=== PATIENT | male | born 1975 | race African-American/Black ===

== ENCOUNTER 2016-04-21 01:25 | Emergency (ER) | payer MEDICAID ==
[~2016-04-21] VITALS: Ht 170.2 cm; Wt 68.0 kg
[2016-04-21 01:52] VITALS: BP 146/111
[2016-04-21] MEDS ORDERED: ALBUTEROL (0.083%) 2.5MG/3ML NEB HHN STA (02:13)
== END 2016-04-21 04:07 | disposition home or self-care (01) ==
LOC: ER 01:56
DX: N18.9 Chronic kidney disease, unspecified (principal); R06.02 Shortness of breath; I12.9 Hypertensive chronic kidney disease with stage 1 through stage 4 chronic kidney disease, or unspecified chronic kidney disease; F17.210 Nicotine dependence, cigarettes, uncomplicated
CPT/HCPCS: 94640; 99283; J7611

== ENCOUNTER 2016-05-02 20:05 | Emergency (ER) | payer MEDICAID ==
[~2016-05-02] VITALS: Ht 172.7 cm; Wt 65.0 kg
[2016-05-02] MEDS ORDERED: ALBUTEROL (0.083%) 2.5MG/3ML NEB HHN STA (22:44)
[2016-05-02] MEDS ORDERED: PREDNISONE 20MG TABLET PO STA (22:44)
[2016-05-02] MEDS ORDERED: IPRATROPIUM BROMIDE (0.02%) 0.5MG/2.5ML NEB HHN STA (22:44)
[2016-05-03] MEDS ORDERED: MORPHINE SULFATE 4 MG/ML CPJ (NOT FOR IM USE) IV ONE (00:45)
[2016-05-03] MEDS ORDERED: ONDANSETRON HCL 4MG/2ML VIAL IV ONE (00:45)
[2016-05-03 01:15] LABS: CHLORIDE 99 mEq/L (98-107); INDEX HEMOLYSI 2 (1-3); INDEX ICTERIC 1 (1-4); INDEX LIPEMIC 1 (1-3)
[2016-05-03 01:17] LABS: BASOPHILS % 1.3 % (0.0-2.0); DIFFERENTIAL COMMENT 0; HEMATOCRIT. 22.8 % (42.0-52.0); HEMOGLOBIN. 7.4 g/dL (14.0-18.0); LYMPHOCYTES % 18.5 % (20.0-50.0); MEAN CORPUSCULAR HEMOGLOBIN 32.4 pg (28.0-32.0); MEAN CORPUSCULAR HGB CONC 32.3 g/dL (31.0-37.0); MEAN CORPUSCULAR VOLUME 100.4 fL (80.0-94.0); MEAN PLATELET VOLUME 9.7 fl (7.4-10.4); MONOCYTES % 6.8 % (2.0-8.0); NEUTROPHILS % 71.4 % (40.0-76.0); PLATELET 223 x1000/uL (130-400); RED BLOOD CELL COUNT 2.27 mill/uL (4.7-6.1); RED CELL DISTRIBUTION WIDTH 19.9 % (11.6-14.6); WHITE BLOOD COUNT 10.1 x1000/uL (4.5-11.0)
[2016-05-03 01:24] LABS: ALANINE AMINOTRANSFERASE 37 IU/L (13-61); ALBUMIN 3.3 g/dL (3.4-5.0); ANION GAP 22; CALCIUM 9.1 mg/dL (8.5-10.1); CARBON DIOXIDE 19 mEq/L (21-32); UREA NITROGEN BLOOD 68 mg/dL (7-21); eGFR 5 mL/min (>60)
[2016-05-03 04:20] VITALS: BP 171/64
== END 2016-05-03 04:33 | disposition home or self-care (01) ==
LOC: ER 20:05
DX: I12.0 Hypertensive chronic kidney disease with stage 5 chronic kidney disease or end stage renal disease (principal); R00.0 Tachycardia, unspecified; D63.1 Anemia in chronic kidney disease; J44.9 Chronic obstructive pulmonary disease, unspecified; N18.6 End stage renal disease; F17.210 Nicotine dependence, cigarettes, uncomplicated; Z99.2 Dependence on renal dialysis
CPT/HCPCS: 36415; 80053; 85025; 93005; 94644; 96374; 96375; 99285; J2270; J2405; J7611; Z7610; J7512

== ENCOUNTER 2016-05-11 04:43 | Emergency (ER) | payer MEDICAID ==
[~2016-05-11] VITALS: Ht 170.2 cm; Wt 59.0 kg
[2016-05-11] MEDS ORDERED: ALBUTEROL (0.083%) 2.5MG/3ML NEB HHN STA (07:18)
[2016-05-11 08:40] VITALS: BP 148/89
== END 2016-05-11 09:05 | disposition left against medical advice (07) ==
LOC: ER 04:43
DX: R06.02 Shortness of breath (principal); R05 Cough; R53.83 Other fatigue; R53.81 Other malaise; J44.9 Chronic obstructive pulmonary disease, unspecified; Z99.2 Dependence on renal dialysis
CPT/HCPCS: 71010; 93005; 94640; 99284; J7611; Z7610

== ENCOUNTER 2016-06-03 23:51 | Emergency (ER) | payer MEDICAID ==
[~2016-06-03] VITALS: Ht 170.2 cm; Wt 61.0 kg
[2016-06-04 04:05] VITALS: BP 175/122
== END 2016-06-04 06:06 | disposition home or self-care (01) ==
LOC: ER 23:52
DX: N28.9 Disorder of kidney and ureter, unspecified (principal); I12.9 Hypertensive chronic kidney disease with stage 1 through stage 4 chronic kidney disease, or unspecified chronic kidney disease; Z99.2 Dependence on renal dialysis
CPT/HCPCS: 99282

== ENCOUNTER 2016-07-25 01:11 | Inpatient (IN) | payer MEDICAID ==
[2016-07-25] VITALS (7 sets, daily range): BP systolic 140–170; BP diastolic 90–113
[~2016-07-25] VITALS: Ht 167.6 cm; Wt 64.9 kg
[2016-07-25] MEDS ORDERED: MORPHINE SULFATE 4 MG/ML CPJ (NOT FOR IM USE) IV STA (01:28)
[2016-07-25] MEDS ORDERED: ONDANSETRON HCL 4MG/2ML VIAL IV STA (01:28)
[2016-07-25] MEDS ORDERED: DIPHENHYDRAMINE 50MG/ML VIAL IV ONE (01:30)
[2016-07-25] MEDS ORDERED: IPRATROPIUM/ALBUTEROL 0.5-3(2.5)MG/3ML NEB HHN ONE (01:30)
[2016-07-25 01:53] LABS: BASOPHILS % 1.2 % (0.0-2.0); HEMOGLOBIN. 9.4 g/dL (14.0-18.0); LYMPHOCYTES % 16.4 % (20.0-50.0); MEAN CORPUSCULAR HEMOGLOBIN 31.3 pg (28.0-32.0); MEAN CORPUSCULAR VOLUME 96.7 fL (80.0-94.0); MEAN PLATELET VOLUME 8.2 fl (7.4-10.4); MONOCYTES % 6.9 % (2.0-8.0); NEUTROPHILS % 71.5 % (40.0-76.0); PLATELET 210 x1000/uL (130-400); RED CELL DISTRIBUTION WIDTH 16.3 % (11.6-14.6)
[2016-07-25 02:03] LABS: INR 1.1; PROTHROMBIN TIME 11.1 sec
[2016-07-25 02:11] LABS: CARBON DIOXIDE 27 mEq/L (21-32); CHLORIDE 100 mEq/L (98-107); CREATINE KINASE 208 IU/L (39-308)
[2016-07-25] MEDS ORDERED: CLONIDINE 0.2MG TABLET PO ONE (03:15)
[2016-07-25] MEDS ORDERED: FUROSEMIDE 40MG/4ML VIAL IV STA (03:39)
[2016-07-25] MEDS ORDERED: NITROGLYCERIN OINT 1GM/INCH UDPKT TD STA (03:39)
[2016-07-25] MEDS ORDERED: ONDANSETRON HCL 4MG/2ML VIAL IV ONE (05:15)
[2016-07-25] MEDS ORDERED: MORPHINE SULFATE 4 MG/ML CPJ (NOT FOR IM USE) IV ONE (05:15)
[2016-07-25] MEDS ORDERED: IPRATROPIUM/ALBUTEROL 0.5-3(2.5)MG/3ML NEB INH PRN (11:00)
[2016-07-25] MEDS ORDERED: ONDANSETRON HCL 4MG/2ML VIAL IV PRN (11:00)
[2016-07-25] MEDS ORDERED: DIPHENHYDRAMINE 50MG/ML VIAL IV PRN (11:00)
[2016-07-25] MEDS ORDERED: TRAMADOL 50MG TABLET PO PRN (11:00)
[2016-07-25] MEDS ORDERED: AMLODIPINE 5MG TABLET PO NR (11:30)
[2016-07-25] MEDS: CLONIDINE 0.1MG TABLET PO PRN ×2 (15:14→23:20)
[2016-07-25 15:56] LABS: TROPONIN I 0.09 ng/mL (0.00-0.04)
[2016-07-25] MEDS: MORPHINE SULFATE 2 MG/ML CPJ (NOT FOR IM USE) IV PRN (22:00)
[2016-07-26] VITALS (12 sets, daily range): BP systolic 153–190; BP diastolic 81–142
[2016-07-26] MEDS: MORPHINE SULFATE 2 MG/ML CPJ (NOT FOR IM USE) IV PRN ×5 (03:13→22:36)
[2016-07-26] MEDS: AMLODIPINE 5MG TABLET PO SCH ×2 (03:18→09:11)
[2016-07-26] MEDS ORDERED: AMLODIPINE 5MG TABLET PO SCH (09:00)
[2016-07-26 09:44] LABS: HEMATOCRIT. 27.5 % (42.0-52.0); HEMOGLOBIN. 8.9 g/dL (14.0-18.0); LYMPHOCYTES % 10.4 % (20.0-50.0); MEAN CORPUSCULAR HEMOGLOBIN 31.4 pg (28.0-32.0); MEAN CORPUSCULAR VOLUME 97.6 fL (80.0-94.0); MEAN PLATELET VOLUME 9.2 fl (7.4-10.4); NEUTROPHILS % 79.6 % (40.0-76.0); PLATELET 171 x1000/uL (130-400); RED BLOOD CELL COUNT 2.82 mill/uL (4.7-6.1); RED CELL DISTRIBUTION WIDTH 16.1 % (11.6-14.6)
[2016-07-26 10:29] LABS: CARBON DIOXIDE 23 mEq/L (21-32); CHLORIDE 100 mEq/L (98-107); HDL CHOLESTEROL 45 mg/dL (40-59); LDL CHOLESTEROL 102 mg/dL (5-100); TROPONIN I 0.11 ng/mL (0.00-0.04)
[2016-07-26] MEDS: CLONIDINE 0.1MG TABLET PO SCH ×3 (12:48→18:43)
[2016-07-26] MEDS: CARVEDILOL 3.125 MG TABLET PO SCH (22:27)
[2016-07-27] VITALS (7 sets, daily range): BP systolic 156–177; BP diastolic 107–126
[2016-07-27] MEDS: CLONIDINE 0.1MG TABLET PO PRN ×2 (00:36→11:59)
[2016-07-27] MEDS: CLONIDINE 0.1MG TABLET PO SCH (06:36)
[2016-07-27] MEDS: MORPHINE SULFATE 2 MG/ML CPJ (NOT FOR IM USE) IV PRN ×2 (06:44→11:57)
[2016-07-27] MEDS: CARVEDILOL 3.125 MG TABLET PO SCH (08:16)
[2016-07-27] MEDS: AMLODIPINE 5MG TABLET PO SCH (08:17)
[2016-07-27 08:42] LABS: BASOPHILS % 0.8 % (0.0-2.0); EOSINOPHILS % 5.2 % (0.0-5.0); HEMATOCRIT. 27.1 % (42.0-52.0); HEMOGLOBIN. 8.8 g/dL (14.0-18.0); LYMPHOCYTES % 16.1 % (20.0-50.0); MEAN CORPUSCULAR HEMOGLOBIN 31.3 pg (28.0-32.0); MEAN CORPUSCULAR VOLUME 96.1 fL (80.0-94.0); MEAN PLATELET VOLUME 8.9 fl (7.4-10.4); MONOCYTES % 8.1 % (2.0-8.0); NEUTROPHILS % 69.8 % (40.0-76.0); PLATELET 177 x1000/uL (130-400); RED BLOOD CELL COUNT 2.82 mill/uL (4.7-6.1); RED CELL DISTRIBUTION WIDTH 15.7 % (11.6-14.6)
[2016-07-27] MEDS ORDERED: LISINOPRIL 20MG TABLET PO SCH (12:45)
[2016-07-27] MEDS ORDERED: CARVEDILOL 12.5MG TABLET PO SCH (21:00)
== END 2016-07-27 13:03 | disposition left against medical advice (07) | DRG 194 ==
LOC: ER 01:15 → EDBEDREQ 03:43 → ENRESERV 05:25 → CANRESERV 05:25 → 5EST 05:37 → EDBEDREQSVC 05:39 → ENRESERV 07:01
PROVIDERS: ADMIT Internal Medicine; ATTEND Internal Medicine
PROC: 5A09357 Assistance with Respiratory Ventilation, Less than 24 Consecutive Hours, Continuous Positive Airway Pressure (ICD-10-PCS; principal; 2016-07-25)
PROC: 5A1D60Z (ICD-10-PCS; 2016-07-25)
DX: I13.2 Hypertensive heart and chronic kidney disease with heart failure and with stage 5 chronic kidney disease, or end stage renal disease (principal); J96.01 Acute respiratory failure with hypoxia; N17.9 Acute kidney failure, unspecified; E43 Unspecified severe protein-calorie malnutrition; N18.6 End stage renal disease; E87.5 Hyperkalemia; I27.2 Other secondary pulmonary hypertension; I50.23 Acute on chronic systolic (congestive) heart failure; I42.9 Cardiomyopathy, unspecified; D63.1 Anemia in chronic kidney disease; F17.210 Nicotine dependence, cigarettes, uncomplicated; F25.9 Schizoaffective disorder, unspecified; F31.9 Bipolar disorder, unspecified; I34.0 Nonrheumatic mitral (valve) insufficiency; Z91.19 Patient's noncompliance with other medical treatment and regimen; Z99.2 Dependence on renal dialysis; Z88.6 Allergy status to analgesic agent; Z79.899 Other long term (current) drug therapy; Z68.23 Body mass index [BMI] 23.0-23.9, adult
CPT/HCPCS: 36415; 71010; 80048; 80053; 80061; 82550; 83605; 83690; 83880; 84443; 84484; 85025; 85610; 85730; 87040; 93005; 94640; 94660; 96374; 96375; 96376; 99291; J1200; J1940; J2270; J2405; J7030; J7620

== ENCOUNTER 2016-09-30 04:10 | Emergency (ER) | payer MEDICAID ==
[~2016-09-30] VITALS: Ht 170.2 cm; Wt 59.0 kg
[~2016-09-30 04:10] MED LIST: CLON0.2T PO
[2016-09-30] MEDS ORDERED: MORPHINE SULFATE 4 MG/ML CPJ (NOT FOR IM USE) IV STA (05:04)
[2016-09-30] MEDS ORDERED: ONDANSETRON HCL 4MG/2ML VIAL IV STA (05:04)
[2016-09-30] MEDS ORDERED: LABETALOL 5MG/ML SYR 20 MG/4 ML SYRINGE IV ONE (05:15)
[2016-09-30 05:29] LABS: HEMATOCRIT. 30.9 % (42.0-52.0); HEMOGLOBIN. 10.1 g/dL (14.0-18.0); MEAN CORPUSCULAR HEMOGLOBIN 31.3 pg (28.0-32.0); MEAN CORPUSCULAR VOLUME 96.3 fL (80.0-94.0); MEAN PLATELET VOLUME 8.5 fl (7.4-10.4); PLATELET 217 x1000/uL (130-400); RED BLOOD CELL COUNT 3.21 mill/uL (4.7-6.1); RED CELL DISTRIBUTION WIDTH 17.5 % (11.6-14.6)
[2016-09-30 05:31] LABS: INR 1.1; PROTHROMBIN TIME 11.4 sec (9.4-11.6)
[2016-09-30 05:56] LABS: PLATELET ESTIMATE NORMAL
[2016-09-30 05:57] LABS: CARBON DIOXIDE 26 mEq/L (21-32); CHLORIDE 103 mEq/L (98-107); TROPONIN I 0.07 ng/mL (0.00-0.04)
[2016-09-30 06:42] VITALS: BP 169/117
== END 2016-09-30 06:50 | disposition home or self-care (01) ==
LOC: ER 04:10
DX: I82.4Y1 Acute embolism and thrombosis of unspecified deep veins of right proximal lower extremity (principal); I12.0 Hypertensive chronic kidney disease with stage 5 chronic kidney disease or end stage renal disease; N18.6 End stage renal disease; F17.200 Nicotine dependence, unspecified, uncomplicated; Z99.2 Dependence on renal dialysis; Z88.6 Allergy status to analgesic agent; Z88.8 Allergy status to other drugs, medicaments and biological substances
CPT/HCPCS: 36415; 71010; 80053; 84484; 85025; 85610; 93005; 96374; 96375; 99285; J2270; J2405; J3490; Z7610

== ENCOUNTER 2016-10-10 03:38 | Inpatient (IN) | payer MEDICAID ==
[~2016-10-10] VITALS: Ht 170.2 cm; Wt 83.9 kg
[2016-10-10] MEDS ORDERED: MORPHINE SULFATE 4 MG/ML CPJ (NOT FOR IM USE) IV STA (05:12)
[2016-10-10] MEDS ORDERED: ONDANSETRON HCL 4MG/2ML VIAL IV STA (05:12)
[2016-10-10] MEDS ORDERED: DIPHENHYDRAMINE 50MG/ML VIAL IV ONE (05:15)
[2016-10-10] MEDS: IPRATROPIUM/ALBUTEROL 0.5-3(2.5)MG/3ML NEB INH SCH ×3 (05:34→20:49)
[2016-10-10 06:04] LABS: BASOPHILS % 0.8 % (0.0-2.0); EOSINOPHILS % 9.1 % (0.0-5.0); HEMATOCRIT. 30.6 % (42.0-52.0); HEMOGLOBIN. 9.9 g/dL (14.0-18.0); LYMPHOCYTES % 12.1 % (20.0-50.0); MEAN CORPUSCULAR HEMOGLOBIN 31.2 pg (28.0-32.0); MEAN CORPUSCULAR VOLUME 96.2 fL (80.0-94.0); MEAN PLATELET VOLUME 9.2 fl (7.4-10.4); MONOCYTES % 5.7 % (2.0-8.0); NEUTROPHILS % 72.3 % (40.0-76.0); PLATELET 192 x1000/uL (130-400); RED BLOOD CELL COUNT 3.18 mill/uL (4.7-6.1); RED CELL DISTRIBUTION WIDTH 16.6 % (11.6-14.6)
[2016-10-10 06:27] LABS: CARBON DIOXIDE 26 mEq/L (21-32); CHLORIDE 102 mEq/L (98-107)
[2016-10-10 10:56] VITALS: BP 181/131
[2016-10-10 11:30] VITALS: BP 184/130
[2016-10-10] MEDS ORDERED: HYDROCODONE/ACETAMINOPHEN 5/325MG TABLET PO PRN (11:30)
[2016-10-10] MEDS ORDERED: GUAIFENESIN 200MG/10ML SUGAR FREE UDC PO PRN (11:30)
[2016-10-10] MEDS ORDERED: DEXTROSE 50% WATER 50ML SYRINGE IV PRN (11:30)
[2016-10-10] MEDS ORDERED: IPRATROPIUM/ALBUTEROL 0.5-3(2.5)MG/3ML NEB INH PRN (11:30)
[2016-10-10] MEDS ORDERED: MAGNESIUM/ALUMINUM HYDROXIDE/SIMETHICONE 30ML UDC PO PRN (11:30)
[2016-10-10] MEDS ORDERED: HYDROCODONE/ACETAMINOPHEN 10/325MG TABLET PO PRN (11:30)
[2016-10-10] MEDS ORDERED: CLONIDINE 0.1MG TABLET PO PRN (11:30)
[2016-10-10] MEDS ORDERED: LORAZEPAM 1MG TABLET PO PRN (11:30)
[2016-10-10 12:00] VITALS: BP 184/130
[2016-10-10] MEDS ORDERED: IBUPROFEN 600MG TABLET PO PRN (12:15)
[2016-10-10] MEDS: INSULIN LISPRO 100 UNITS/ML SUBCUT SCH ×3 (12:50→21:00)
[2016-10-10] MEDS: CALCIUM ACETATE 667MG CAPSULE PO SCH ×2 (12:52→17:52)
[2016-10-10] MEDS: AMLODIPINE 10MG TABLET PO SCH (12:52)
[2016-10-10] MEDS: LISINOPRIL 20MG TABLET PO SCH (12:52)
[2016-10-10] MEDS: BLOOD SUGAR DIAGNOSTIC STRIP TEST SCH ×3 (12:52→21:00)
[2016-10-10] MEDS: CEFTRIAXONE 1 G PREMIX 50 ML IV SCH (14:23)
[2016-10-10] MEDS: HYDRALAZINE HCL 25MG TABLET PO SCH ×2 (14:23→21:23)
[2016-10-10 16:00] VITALS: BP 169/108
[2016-10-10 17:52] LABS: TROPONIN I 0.09 ng/mL (0.00-0.04)
[2016-10-10 20:00] VITALS: BP 155/89
[2016-10-10] MEDS: MORPHINE SULFATE 2 MG/ML CPJ (NOT FOR IM USE) IV PRN (21:56)
[2016-10-11] VITALS: BP 159/100
[2016-10-11] MEDS: MORPHINE SULFATE 2 MG/ML CPJ (NOT FOR IM USE) IV PRN ×3 (02:03→14:18)
[2016-10-11 04:00] VITALS: BP 150/95
[2016-10-11] MEDS: IPRATROPIUM/ALBUTEROL 0.5-3(2.5)MG/3ML NEB INH SCH ×3 (04:10→23:30)
[2016-10-11] MEDS: BLOOD SUGAR DIAGNOSTIC STRIP TEST SCH ×4 (05:37→21:33)
[2016-10-11] MEDS: HYDRALAZINE HCL 25MG TABLET PO SCH ×3 (05:58→21:32)
[2016-10-11 07:18] VITALS: BP 158/110
[2016-10-11] MEDS: INSULIN LISPRO 100 UNITS/ML SUBCUT SCH ×4 (07:50→21:00)
[2016-10-11] MEDS: LISINOPRIL 20MG TABLET PO SCH (08:22)
[2016-10-11] MEDS: FOLIC ACID/VITAMIN B COMP W-C TABLET PO SCH (08:22)
[2016-10-11] MEDS: AMLODIPINE 10MG TABLET PO SCH (08:22)
[2016-10-11] MEDS: CALCIUM ACETATE 667MG CAPSULE PO SCH ×3 (08:23→18:42)
[2016-10-11 10:45] LABS: HEMATOCRIT. 29.5 % (42.0-52.0); HEMOGLOBIN. 9.6 g/dL (14.0-18.0); MEAN CORPUSCULAR HEMOGLOBIN 31.2 pg (28.0-32.0); MEAN CORPUSCULAR VOLUME 95.5 fL (80.0-94.0); MEAN PLATELET VOLUME 8.5 fl (7.4-10.4); PLATELET 183 x1000/uL (130-400); RED BLOOD CELL COUNT 3.09 mill/uL (4.7-6.1); RED CELL DISTRIBUTION WIDTH 16.8 % (11.6-14.6)
[2016-10-11 11:25] LABS: CARBON DIOXIDE 29 mEq/L (21-32); CHLORIDE 99 mEq/L (98-107); HDL CHOLESTEROL 52 mg/dL (40-59); LDL CHOLESTEROL 112 mg/dL (5-100)
[2016-10-11 12:07] VITALS: BP 155/104
[2016-10-11 14:04] LABS: PLATELET ESTIMATE NORMAL
[2016-10-11] MEDS ORDERED: KETOROLAC 30MG/ML VIAL IV PRN (14:15)
[2016-10-11] MEDS: CEFTRIAXONE 1 G PREMIX 50 ML IV SCH (14:16)
[2016-10-11] MEDS: SEVELAMER CARBONATE 800 MG TABLET PO SCH ×2 (14:19→18:42)
[2016-10-11 15:10] VITALS: BP 159/104
[2016-10-11] MEDS: MORPHINE SULFATE 4 MG/ML CPJ (NOT FOR IM USE) IV PRN ×2 (18:42→23:02)
[2016-10-11 20:00] VITALS: BP 161/110
[2016-10-12] VITALS: BP 154/100
[2016-10-12] MEDS: MORPHINE SULFATE 4 MG/ML CPJ (NOT FOR IM USE) IV PRN ×2 (03:21→08:19)
[2016-10-12 04:00] VITALS: BP 158/113
[2016-10-12] MEDS: IPRATROPIUM/ALBUTEROL 0.5-3(2.5)MG/3ML NEB INH SCH (04:00)
[2016-10-12] MEDS: HYDRALAZINE HCL 25MG TABLET PO SCH (05:00)
[2016-10-12] MEDS: BLOOD SUGAR DIAGNOSTIC STRIP TEST SCH ×2 (06:33→11:49)
[2016-10-12] MEDS: INSULIN LISPRO 100 UNITS/ML SUBCUT SCH ×2 (07:50→12:36)
[2016-10-12 07:56] VITALS: BP 147/92
[2016-10-12] MEDS: SEVELAMER CARBONATE 800 MG TABLET PO SCH (08:18)
[2016-10-12] MEDS: FOLIC ACID/VITAMIN B COMP W-C TABLET PO SCH (08:18)
[2016-10-12] MEDS: AMLODIPINE 10MG TABLET PO SCH (08:24)
[2016-10-12] MEDS: LISINOPRIL 20MG TABLET PO SCH (08:24)
[2016-10-12] MEDS: CALCIUM ACETATE 667MG CAPSULE PO SCH (08:37)
[2016-10-12 12:00] VITALS: BP 158/105
[2016-10-12 12:10] LABS: BASOPHILS % 1.1 % (0.0-2.0); EOSINOPHILS % 12.2 % (0.0-5.0); HEMATOCRIT. 28.3 % (42.0-52.0); HEMOGLOBIN. 9.1 g/dL (14.0-18.0); LYMPHOCYTES % 17.5 % (20.0-50.0); MEAN CORPUSCULAR HEMOGLOBIN 30.8 pg (28.0-32.0); MEAN CORPUSCULAR VOLUME 95.7 fL (80.0-94.0); MEAN PLATELET VOLUME 8.9 fl (7.4-10.4); MONOCYTES % 5.9 % (2.0-8.0); NEUTROPHILS % 63.3 % (40.0-76.0); PLATELET 203 x1000/uL (130-400); RED BLOOD CELL COUNT 2.96 mill/uL (4.7-6.1); RED CELL DISTRIBUTION WIDTH 16.9 % (11.6-14.6)
[2016-10-12 12:19] LABS: PROTHROMBIN TIME 10.6 sec (9.4-11.6)
[2016-10-12 12:30] LABS: PHOSPHORUS 6.7 mg/dL (2.5-4.9)
[2016-11-23] MEDS ORDERED: NEPVIT PO (08:48)
[2016-11-23] MEDS ORDERED: AMLO10TA80 PO (08:48)
[2016-11-23] MEDS ORDERED: HYDR-4135 PO (08:48)
[2016-11-30] MEDS ORDERED: GUAI600T44 PO (11:59)
[2016-11-30] MEDS ORDERED: AZIT500T5 PO (11:59)
[2016-11-30] MEDS ORDERED: LOSA50TA3 PO (11:59)
[2016-11-30] MEDS ORDERED: COR12 PO (11:59)
[2016-12-26] MEDS ORDERED: CLON1PAT38 TD (10:30)
[2016-12-26] MEDS ORDERED: LOSA50TA3 PO (10:30)
== END 2016-10-12 13:50 | disposition left against medical advice (07) | DRG 133 ==
LOC: ER 03:38 → 6WST 05:54 → EDBEDREQTM 05:59 → EDBEDREQ 05:59 → ENRESERV 09:07
PROVIDERS: ADMIT Internal Medicine; ATTEND Internal Medicine
DX: J96.00 Acute respiratory failure, unspecified whether with hypoxia or hypercapnia (principal); I13.2 Hypertensive heart and chronic kidney disease with heart failure and with stage 5 chronic kidney disease, or end stage renal disease; N18.6 End stage renal disease; I42.9 Cardiomyopathy, unspecified; I82.401 Acute embolism and thrombosis of unspecified deep veins of right lower extremity; I27.2 Other secondary pulmonary hypertension; E44.1 Mild protein-calorie malnutrition; E83.39 Other disorders of phosphorus metabolism; D63.1 Anemia in chronic kidney disease; F17.210 Nicotine dependence, cigarettes, uncomplicated; Z60.2 Problems related to living alone; F20.9 Schizophrenia, unspecified; Z53.21 Procedure and treatment not carried out due to patient leaving prior to being seen by health care provider; I50.42 Chronic combined systolic (congestive) and diastolic (congestive) heart failure; F19.10 Other psychoactive substance abuse, uncomplicated; Z86.718 Personal history of other venous thrombosis and embolism; Z99.2 Dependence on renal dialysis; Z91.19 Patient's noncompliance with other medical treatment and regimen; Z88.8 Allergy status to other drugs, medicaments and biological substances
CPT/HCPCS: 36415; 71010; 80048; 80053; 80061; 82550; 82962; 84100; 84484; 85025; 85610; 85730; 87040; 93005; 96374; 96375; 99291; J0696; J1200; J2270; J2405; J7030; J7050; J7620

== ENCOUNTER 2016-10-22 03:58 | Inpatient (IN) | payer MEDICAID ==
[~2016-10-22] VITALS: Ht 170.2 cm; Wt 59.9 kg
[2016-10-22] MEDS ORDERED: ASPIRIN 81MG TABLET PO ONE (04:30)
[2016-10-22] MEDS ORDERED: NITROGLYCERIN OINT 1GM/INCH UDPKT TD ONE (04:30)
[2016-10-22] MEDS ORDERED: LABETALOL HCL 20MG/4ML CARPUJECT IV ONE (04:30)
[2016-10-22] MEDS ORDERED: IPRATROPIUM BROMIDE (0.02%) 0.5MG/2.5ML NEB HHN STA (04:55)
[2016-10-22] MEDS ORDERED: METHYLPREDNISOLONE SOD SUCC 125 MG/2 ML VIAL IV STA (04:55)
[2016-10-22] MEDS ORDERED: ALBUTEROL (0.083%) 2.5MG/3ML NEB HHN STA (04:55)
[2016-10-22] MEDS ORDERED: MAGNESIUM 2 G PREMIX 50 ML IV ONE (05:00)
[2016-10-22] MEDS ORDERED: LEVOFLOXACIN 750MG PREMIX 150 ML IV ONE (05:00)
[2016-10-22 05:08] LABS: BG CARBOXYHEMOGLOBIN 0.8 % (0.5-1.5); BG DEOXYHEMOGLOBIN 8.5 % (0.0-5.0); BG FRACTION INSPIRED OXYGEN 28; BG HCO3 ACT 22.4 mmol/L (22.0-26.0); BG METHEMOGLOBIN 0.2 % (0.0-1.5); BG OXYGEN SATURATION 91.4 % (92.0-98.5); BG OXYHEMOGLOBIN 90.5 % (94.0-97.0); BG PCO2 32.6 mmHg (35.0-45.0); BG PH 7.455 (7.350-7.450); BG PO2 64.6 mmHg (75.0-100.0); BG SAMPLE SITE LEFT RADIAL; BG TOTAL HEMOGLOBIN 10.7 g/dL (12.0-18.0); BG VENT MODE NASAL CANNULA
[2016-10-22 06:26] LABS: BASOPHILS % 0.7 % (0.0-2.0); EOSINOPHILS % 4.4 % (0.0-5.0); HEMATOCRIT. 32.3 % (42.0-52.0); HEMOGLOBIN. 10.2 g/dL (14.0-18.0); LYMPHOCYTES % 9.7 % (20.0-50.0); MEAN CORPUSCULAR HEMOGLOBIN 31.1 pg (28.0-32.0); MEAN PLATELET VOLUME 8.7 fl (7.4-10.4); MONOCYTES % 3.8 % (2.0-8.0); NEUTROPHILS % 81.4 % (40.0-76.0); PLATELET 240 x1000/uL (130-400); RED CELL DISTRIBUTION WIDTH 15.9 % (11.6-14.6)
[2016-10-22] MEDS ORDERED: MORPHINE SULFATE 2 MG/ML CPJ (NOT FOR IM USE) IV STA (06:29)
[2016-10-22 06:36] LABS: INR 1.1; PARTIAL THROMBOPLASTIN TIME 26.8 sec (23.4-31.0)
[2016-10-22 06:41] LABS: CARBON DIOXIDE 26 mEq/L (21-32); CHLORIDE 101 mEq/L (98-107); ETHANOL BLOOD < 10 mg/dL; TROPONIN I 0.22 ng/mL (0.00-0.04)
[2016-10-22 09:45] VITALS: BP 173/110
[2016-10-22] MEDS ORDERED: ONDANSETRON HCL 4MG/2ML VIAL IV PRN ×2 (10:00→10:15)
[2016-10-22] MEDS ORDERED: IPRATROPIUM/ALBUTEROL 0.5-3(2.5)MG/3ML NEB INH PRN ×2 (10:00→10:15)
[2016-10-22] MEDS ORDERED: CLONIDINE 0.1MG TABLET PO PRN (10:00)
[2016-10-22] MEDS ORDERED: DOCUSATE SODIUM 100MG CAPSULE PO PRN ×2 (10:00→10:15)
[2016-10-22] MEDS ORDERED: MAGNESIUM/ALUMINUM HYDROXIDE/SIMETHICONE 30ML UDC PO PRN ×2 (10:00→10:15)
[2016-10-22] MEDS ORDERED: TRAMADOL 50MG TABLET PO PRN ×2 (10:00→10:15)
[2016-10-22] MEDS ORDERED: AZITHROMYCIN 500 MG TABLET PO SCH ×2 (10:00→10:15)
[2016-10-22 10:38] VITALS: BP 173/110
[2016-10-22] MEDS: FOLIC ACID/VITAMIN B COMP W-C TABLET PO SCH (11:53)
[2016-10-22] MEDS: CEFTRIAXONE 1 G PREMIX 50 ML IV SCH (11:54)
[2016-10-22 12:00] VITALS: BP 179/117
[2016-10-22 16:00] VITALS: BP 165/112
[2016-10-22] MEDS: AZITHROMYCIN 500 MG in DEXT 5% WATER 250 ML IV SCH (17:39)
[2016-10-22 20:00] VITALS: BP 164/99
[2016-10-22] MEDS: MORPHINE SULFATE 4 MG/ML CPJ (NOT FOR IM USE) IV PRN (21:48)
[2016-10-22] MEDS: AMLODIPINE 5MG TABLET PO SCH (22:45)
[2016-10-23] VITALS: BP 171/100
[2016-10-23] MEDS: CLONIDINE 0.1MG TABLET PO PRN ×2 (00:52→10:26)
[2016-10-23] MEDS: MORPHINE SULFATE 4 MG/ML CPJ (NOT FOR IM USE) IV PRN ×4 (01:39→19:00)
[2016-10-23 04:00] VITALS: BP 148/99
[2016-10-23 08:00] VITALS: BP 142/83
[2016-10-23] MEDS: FOLIC ACID/VITAMIN B COMP W-C TABLET PO SCH (08:00)
[2016-10-23] MEDS: AMLODIPINE 5MG TABLET PO SCH (08:00)
[2016-10-23] MEDS: CEFTRIAXONE 1 G PREMIX 50 ML IV SCH (08:04)
[2016-10-23] MEDS ORDERED: CEFTRIAXONE 1 G PREMIX 50 ML IV SCH (09:00)
[2016-10-23 09:27] LABS: BASOPHILS % 0.7 % (0.0-2.0); HEMATOCRIT 26.5 % (42.0-52.0); HEMATOCRIT. 26.5 % (42.0-52.0); HEMOGLOBIN 8.7 g/dL (14.0-18.0); HEMOGLOBIN. 8.7 g/dL (14.0-18.0); LYMPHOCYTES % 14.5 % (20.0-50.0); MEAN CORPUSCULAR HEMOGLOBIN 31.1 pg (28.0-32.0); MEAN CORPUSCULAR VOLUME 94.9 fL (80.0-94.0); MEAN PLATELET VOLUME 8.5 fl (7.4-10.4); MONOCYTES % 5.1 % (2.0-8.0); NEUTROPHILS % 77.7 % (40.0-76.0); PLATELET 216 x1000/uL (130-400); RED BLOOD CELL COUNT 2.79 mill/uL (4.7-6.1); RED CELL DISTRIBUTION WIDTH 15.9 % (11.6-14.6)
[2016-10-23 09:38] LABS: PHOSPHORUS 5.5 mg/dL (2.5-4.9)
[2016-10-23] MEDS ORDERED: LISINOPRIL 20MG TABLET PO SCH ×2 (11:00→21:00)
[2016-10-23 12:00] VITALS: BP 152/107
[2016-10-23] MEDS: SEVELAMER CARBONATE 800 MG TABLET PO SCH ×2 (12:13→18:21)
[2016-10-23] MEDS: AZITHROMYCIN 500 MG in DEXT 5% WATER 250 ML IV SCH (18:00)
[2016-10-23 19:00] VITALS: BP 141/96
[2016-10-24] MEDS ORDERED: AZITHROMYCIN 500 MG TABLET PO SCH (09:00)
[2016-11-23] MEDS ORDERED: AMLO10TA80 PO (08:48)
[2016-11-23] MEDS ORDERED: NEPVIT PO (08:48)
[2016-11-23] MEDS ORDERED: HYDR-4135 PO (08:48)
[2016-12-26] MEDS ORDERED: LOSA50TA3 PO (10:30)
[2016-12-26] MEDS ORDERED: CLON1PAT38 TD (10:30)
== END 2016-10-23 20:18 | disposition left against medical advice (07) | DRG 140 ==
LOC: ER 03:58 → 5EST 04:53 → ENRESERV 08:40 → ER 10:03
PROVIDERS: ADMIT Internal Medicine; ATTEND Internal Medicine
PROC: 5A1D00Z (ICD-10-PCS; principal; 2016-10-22)
DX: J44.0 Chronic obstructive pulmonary disease with (acute) lower respiratory infection (principal); J96.00 Acute respiratory failure, unspecified whether with hypoxia or hypercapnia; I13.2 Hypertensive heart and chronic kidney disease with heart failure and with stage 5 chronic kidney disease, or end stage renal disease; J18.9 Pneumonia, unspecified organism; N18.6 End stage renal disease; I50.9 Heart failure, unspecified; J44.1 Chronic obstructive pulmonary disease with (acute) exacerbation; D63.1 Anemia in chronic kidney disease; E78.5 Hyperlipidemia, unspecified; Z53.21 Procedure and treatment not carried out due to patient leaving prior to being seen by health care provider; F17.200 Nicotine dependence, unspecified, uncomplicated; Z91.15 Patient's noncompliance with renal dialysis; Z91.19 Patient's noncompliance with other medical treatment and regimen; Z99.2 Dependence on renal dialysis; Z88.8 Allergy status to other drugs, medicaments and biological substances
CPT/HCPCS: 36415; 36600; 71010; 80048; 80053; 82375; 82805; 83605; 83690; 83735; 83880; 84100; 84484; 85025; 85027; 85610; 85730; 87040; 93005; 96365; 96366; 96368; 96375; 99285; G0482; J0456; J0696; J1956; J2270; J2405; J2930; J3475; J3490; J7030; J7050; J7060

== ENCOUNTER 2016-10-30 04:58 | Inpatient (IN) | payer MEDICAID ==
[~2016-10-30] VITALS: Ht 167.6 cm; Wt 62.6 kg
[2016-10-30 05:38] LABS: EOSINOPHILS % 6.2 % (0.0-5.0); HEMATOCRIT. 26.7 % (42.0-52.0); HEMOGLOBIN. 8.8 g/dL (14.0-18.0); LYMPHOCYTES % 14.2 % (20.0-50.0); MEAN CORPUSCULAR HEMOGLOBIN 31.2 pg (28.0-32.0); MEAN CORPUSCULAR VOLUME 95.2 fL (80.0-94.0); MEAN PLATELET VOLUME 8.5 fl (7.4-10.4); MONOCYTES % 6.2 % (2.0-8.0); NEUTROPHILS % 72.4 % (40.0-76.0); PLATELET 191 x1000/uL (130-400); RED BLOOD CELL COUNT 2.81 mill/uL (4.7-6.1); RED CELL DISTRIBUTION WIDTH 16.8 % (11.6-14.6)
[2016-10-30 05:46] LABS: INR 1.1; PROTHROMBIN TIME 11.4 sec (9.4-11.6)
[2016-10-30 05:55] LABS: CARBON DIOXIDE 28 mEq/L (21-32); CHLORIDE 104 mEq/L (98-107); TROPONIN I 0.12 ng/mL (0.00-0.04)
[2016-10-30] MEDS ORDERED: IBUPROFEN 600MG TABLET PO PRN (06:15)
[2016-10-30] MEDS ORDERED: ACETAMINOPHEN 325MG TABLET PO ONE (07:15)
[2016-10-30] MEDS ORDERED: NITROGLYCERIN OINT 1GM/INCH UDPKT TD ONE (08:00)
[2016-10-30] MEDS ORDERED: IPRATROPIUM/ALBUTEROL 0.5-3(2.5)MG/3ML NEB HHN ONE (08:00)
[2016-10-30] MEDS ORDERED: ACETAMINOPHEN 325MG TABLET PO PRN (08:45)
[2016-10-30] MEDS ORDERED: DOCUSATE SODIUM 100MG CAPSULE PO PRN (08:45)
[2016-10-30] MEDS ORDERED: DIPHENHYDRAMINE 50MG/ML VIAL IV PRN (08:45)
[2016-10-30] MEDS ORDERED: GUAIFENESIN 200MG/10ML SUGAR FREE UDC PO PRN (08:45)
[2016-10-30] MEDS ORDERED: HYDROCODONE/ACETAMINOPHEN 5/325MG TABLET PO PRN (08:45)
[2016-10-30] MEDS ORDERED: IPRATROPIUM/ALBUTEROL 0.5-3(2.5)MG/3ML NEB HHN NR (08:45)
[2016-10-30] MEDS ORDERED: MAGNESIUM/ALUMINUM HYDROXIDE/SIMETHICONE 30ML UDC PO PRN (08:45)
[2016-10-30] MEDS ORDERED: IPRATROPIUM/ALBUTEROL 0.5-3(2.5)MG/3ML NEB INH PRN (08:45)
[2016-10-30] MEDS ORDERED: ONDANSETRON HCL 4MG/2ML VIAL IV PRN (08:45)
[2016-10-30 09:22] VITALS: BP 172/112
[2016-10-30 09:31] VITALS: BP 172/112
[2016-10-30] MEDS: MORPHINE SULFATE 4 MG/ML CPJ (NOT FOR IM USE) IV PRN ×3 (09:51→22:21)
[2016-10-30] MEDS: CLONIDINE 0.1MG TABLET PO PRN (09:51)
[2016-10-30] MEDS: ENOXAPARIN 30MG/0.3ML SYR SUBCUT SCH (09:52)
[2016-10-30 11:53] VITALS: BP 165/116
[2016-10-30 12:30] VITALS: BP 166/116
[2016-10-30] MEDS: HYDRALAZINE HCL 25MG TABLET PO SCH ×2 (14:30→22:31)
[2016-10-30 16:30] VITALS: BP 168/116
[2016-10-30 17:54] LABS: CREATINE KINASE MB FRACTION 2.2 ng/mL (0.5-3.6); TROPONIN I 0.1 ng/mL (0.00-0.04)
[2016-10-30 20:00] VITALS: BP 166/86
[2016-10-30 23:29] LABS: CREATINE KINASE MB FRACTION 2.4 ng/mL (0.5-3.6); TROPONIN I 0.11 ng/mL (0.00-0.04)
[2016-10-31] VITALS (7 sets, daily range): BP systolic 153–185; BP diastolic 104–134
[2016-10-31] MEDS: MORPHINE SULFATE 4 MG/ML CPJ (NOT FOR IM USE) IV PRN ×4 (02:24→21:19)
[2016-10-31] MEDS: CLONIDINE 0.1MG TABLET PO PRN ×2 (02:26→08:47)
[2016-10-31] MEDS: HYDRALAZINE HCL 25MG TABLET PO SCH ×2 (06:06→14:13)
[2016-10-31] MEDS: ENOXAPARIN 30MG/0.3ML SYR SUBCUT SCH (08:44)
[2016-10-31 16:14] LABS: BASOPHILS % 0.9 % (0.0-2.0); EOSINOPHILS % 7.7 % (0.0-5.0); HEMATOCRIT. 25.7 % (42.0-52.0); HEMOGLOBIN. 8.2 g/dL (14.0-18.0); MEAN CORPUSCULAR HEMOGLOBIN 31.4 pg (28.0-32.0); MEAN CORPUSCULAR VOLUME 98.3 fL (80.0-94.0); MEAN PLATELET VOLUME 9.2 fl (7.4-10.4); MONOCYTES % 5.9 % (2.0-8.0); NEUTROPHILS % 68.5 % (40.0-76.0); PLATELET 191 x1000/uL (130-400); RED BLOOD CELL COUNT 2.62 mill/uL (4.7-6.1); RED CELL DISTRIBUTION WIDTH 17.3 % (11.6-14.6)
[2016-10-31 16:27] LABS: CARBON DIOXIDE 24 mEq/L (21-32); CHLORIDE 105 mEq/L (98-107); T4 FREE 1.02 ng/dL (0.76-1.46)
[2016-10-31] MEDS ORDERED: LISINOPRIL 40MG TABLET PO SCH (16:45)
[2016-10-31] MEDS ORDERED: FOLIC ACID/VITAMIN B COMP W-C TABLET PO SCH (16:45)
[2016-10-31] MEDS ORDERED: SEVELAMER CARBONATE 800 MG TABLET PO SCH (17:50)
[2016-10-31] MEDS ORDERED: IPRATROPIUM/ALBUTEROL 0.5-3(2.5)MG/3ML NEB HHN SCH (18:00)
[2016-10-31] MEDS ORDERED: BUDESONIDE 0.5MG/2ML NEB HHN SCH (18:00)
[2016-10-31] MEDS ORDERED: HYDRALAZINE HCL 25MG TABLET PO SCH (22:00)
[2016-11-23] MEDS ORDERED: HYDR-4135 PO (08:48)
[2016-11-23] MEDS ORDERED: NEPVIT PO (08:48)
[2016-11-23] MEDS ORDERED: AMLO10TA80 PO (08:48)
[2016-12-26] MEDS ORDERED: CLON1PAT38 TD (10:30)
[2016-12-26] MEDS ORDERED: LOSA50TA3 PO (10:30)
== END 2016-10-31 21:49 | disposition left against medical advice (07) | DRG 133 ==
LOC: ER 07:10 → 6WST 07:11 → ENRESERV 07:16
PROVIDERS: ADMIT Internal Medicine; ATTEND Internal Medicine
DX: J96.00 Acute respiratory failure, unspecified whether with hypoxia or hypercapnia (principal); I50.43 Acute on chronic combined systolic (congestive) and diastolic (congestive) heart failure; E11.22 Type 2 diabetes mellitus with diabetic chronic kidney disease; I42.9 Cardiomyopathy, unspecified; I13.2 Hypertensive heart and chronic kidney disease with heart failure and with stage 5 chronic kidney disease, or end stage renal disease; I27.2 Other secondary pulmonary hypertension; D64.9 Anemia, unspecified; F17.210 Nicotine dependence, cigarettes, uncomplicated; F20.9 Schizophrenia, unspecified; J45.909 Unspecified asthma, uncomplicated; G89.29 Other chronic pain; E78.5 Hyperlipidemia, unspecified; Z87.01 Personal history of pneumonia (recurrent); I82.501 Chronic embolism and thrombosis of unspecified deep veins of right lower extremity; J44.1 Chronic obstructive pulmonary disease with (acute) exacerbation; Z88.8 Allergy status to other drugs, medicaments and biological substances; Z79.899 Other long term (current) drug therapy; Z91.19 Patient's noncompliance with other medical treatment and regimen; Z99.2 Dependence on renal dialysis
CPT/HCPCS: 36415; 71010; 80053; 82550; 82553; 82962; 83880; 84439; 84443; 84484; 85025; 85610; 93005; 93970; 94640; 94664; 99285; J1650; J2270; J2405; J7030; J7620

== ENCOUNTER 2016-11-09 00:30 | Inpatient (IN) | payer MEDICAID ==
[~2016-11-09] VITALS: Ht 170.2 cm; Wt 68.0 kg
[2016-11-09 01:13] LABS: BASOPHILS % 1.3 % (0.0-2.0); EOSINOPHILS % 6.3 % (0.0-5.0); HEMATOCRIT. 26.7 % (42.0-52.0); HEMOGLOBIN. 8.7 g/dL (14.0-18.0); LYMPHOCYTES % 15.7 % (20.0-50.0); MEAN CORPUSCULAR HEMOGLOBIN 31.8 pg (28.0-32.0); MEAN CORPUSCULAR VOLUME 97.7 fL (80.0-94.0); MEAN PLATELET VOLUME 8.3 fl (7.4-10.4); MONOCYTES % 5.2 % (2.0-8.0); NEUTROPHILS % 71.5 % (40.0-76.0); PLATELET 241 x1000/uL (130-400); RED BLOOD CELL COUNT 2.73 mill/uL (4.7-6.1); RED CELL DISTRIBUTION WIDTH 19.6 % (11.6-14.6)
[2016-11-09 01:22] LABS: INR 1.1; PROTHROMBIN TIME 11.5 sec (9.4-11.6)
[2016-11-09 01:29] LABS: CARBON DIOXIDE 24 mEq/L (21-32); CHLORIDE 102 mEq/L (98-107); TROPONIN I 0.18 ng/mL (0.00-0.04)
[2016-11-09] MEDS ORDERED: HYDRALAZINE 20MG/ML VIAL IV ONE (02:45)
[2016-11-09 03:45] VITALS: BP 169/103
[2016-11-09] MEDS: CLONIDINE 0.1MG TABLET PO PRN (04:28)
[2016-11-09] MEDS: MORPHINE SULFATE 4 MG/ML CPJ (NOT FOR IM USE) IV PRN ×4 (04:29→20:24)
[2016-11-09 06:43] LABS: BASOPHILS % 0.9 % (0.0-2.0); EOSINOPHILS % 6.1 % (0.0-5.0); HEMATOCRIT. 27.1 % (42.0-52.0); HEMOGLOBIN. 8.7 g/dL (14.0-18.0); LYMPHOCYTES % 14.5 % (20.0-50.0); MEAN CORPUSCULAR HEMOGLOBIN 31.6 pg (28.0-32.0); MEAN PLATELET VOLUME 8.4 fl (7.4-10.4); MONOCYTES % 4.9 % (2.0-8.0); NEUTROPHILS % 73.6 % (40.0-76.0); PLATELET 256 x1000/uL (130-400); RED BLOOD CELL COUNT 2.77 mill/uL (4.7-6.1); RED CELL DISTRIBUTION WIDTH 19.9 % (11.6-14.6)
[2016-11-09 08:00] VITALS: BP 162/117
[2016-11-09 12:00] VITALS: BP 141/98
[2016-11-09 16:00] VITALS: BP 164/123
[2016-11-09] MEDS: APIXABAN 2.5 MG TABLET PO SCH (16:29)
[2016-11-09] MEDS: CALCIUM CARBONATE 1250MG TABLET (500MG ELEMENTAL CALCIUM) PO SCH (16:41)
[2016-11-09] MEDS: SEVELAMER CARBONATE 800 MG TABLET PO SCH (16:41)
[2016-11-09] MEDS ORDERED: RIVAROXABAN 15 MG TABLET PO SCH (17:00)
[2016-11-09 20:27] VITALS: BP 172/96
[2016-11-10] VITALS: BP 170/120
[2016-11-10] MEDS: MORPHINE SULFATE 4 MG/ML CPJ (NOT FOR IM USE) IV PRN ×5 (00:25→21:33)
[2016-11-10] MEDS: CLONIDINE 0.1MG TABLET PO PRN ×4 (00:26→12:45)
[2016-11-10 04:00] VITALS: BP 165/122
[2016-11-10 07:19] LABS: EOSINOPHILS % 8.4 % (0.0-5.0); HEMATOCRIT. 26.1 % (42.0-52.0); HEMOGLOBIN. 8.4 g/dL (14.0-18.0); LYMPHOCYTES % 17.2 % (20.0-50.0); MEAN CORPUSCULAR HEMOGLOBIN 32.1 pg (28.0-32.0); MEAN CORPUSCULAR VOLUME 99.2 fL (80.0-94.0); MEAN PLATELET VOLUME 8.9 fl (7.4-10.4); NEUTROPHILS % 69.4 % (40.0-76.0); PLATELET 203 x1000/uL (130-400); RED BLOOD CELL COUNT 2.63 mill/uL (4.7-6.1); RED CELL DISTRIBUTION WIDTH 19.5 % (11.6-14.6)
[2016-11-10 07:59] LABS: PHOSPHORUS 6.9 mg/dL (2.5-4.9)
[2016-11-10 08:00] VITALS: BP 175/122
[2016-11-10] MEDS: SEVELAMER CARBONATE 800 MG TABLET PO SCH ×3 (08:40→16:45)
[2016-11-10] MEDS: CALCIUM CARBONATE 1250MG TABLET (500MG ELEMENTAL CALCIUM) PO SCH ×2 (08:40→16:45)
[2016-11-10] MEDS: APIXABAN 2.5 MG TABLET PO SCH ×2 (08:42→16:45)
[2016-11-10] MEDS: AMLODIPINE 5MG TABLET PO SCH ×2 (08:44→21:34)
[2016-11-10] MEDS ORDERED: FOLIC ACID/VITAMIN B COMP W-C TABLET PO SCH (09:00)
[2016-11-10 12:00] VITALS: BP 171/124
[2016-11-10] MEDS ORDERED: ATENOLOL 50 MG TABLET PO NR (15:00)
[2016-11-10 16:27] VITALS: BP 158/118
[2016-11-10] MEDS ORDERED: ONDANSETRON HCL 4MG/2ML VIAL IV PRN (16:30)
[2016-11-10] MEDS ORDERED: HEPARIN SODIUM 1,000 UNIT/1ML VIAL IV NR (18:45)
[2016-11-10 21:33] VITALS: BP 142/79
[2016-11-10] MEDS ORDERED: NITROGLYCERIN 0.4MG TABLET SL SL PRN (22:30)
[2016-11-11] MEDS ORDERED: ATENOLOL 50 MG TABLET PO SCH (09:00)
[2016-11-23] MEDS ORDERED: HYDR-4135 PO (08:48)
[2016-11-23] MEDS ORDERED: AMLO10TA80 PO (08:48)
[2016-11-23] MEDS ORDERED: NEPVIT PO (08:48)
[2016-11-30] MEDS ORDERED: AZIT500T5 PO (11:59)
[2016-11-30] MEDS ORDERED: COR12 PO (11:59)
[2016-11-30] MEDS ORDERED: GUAI600T44 PO (11:59)
[2016-11-30] MEDS ORDERED: LOSA50TA3 PO (11:59)
[2016-12-26] MEDS ORDERED: CLON1PAT38 TD (10:30)
[2016-12-26] MEDS ORDERED: LOSA50TA3 PO (10:30)
== END 2016-11-10 22:45 | disposition left against medical advice (07) | DRG 199 ==
LOC: ER 00:30 → 8WST 02:14 → ENRESERV 02:42
PROVIDERS: ADMIT Internal Medicine; ATTEND Internal Medicine
PROC: 5A1D00Z (ICD-10-PCS; principal; 2016-11-10)
DX: I16.9 Hypertensive crisis, unspecified (principal); N18.6 End stage renal disease; I42.0 Dilated cardiomyopathy; E87.70 Fluid overload, unspecified; I50.22 Chronic systolic (congestive) heart failure; I13.2 Hypertensive heart and chronic kidney disease with heart failure and with stage 5 chronic kidney disease, or end stage renal disease; F20.9 Schizophrenia, unspecified; F17.200 Nicotine dependence, unspecified, uncomplicated; D63.8 Anemia in other chronic diseases classified elsewhere; Z99.2 Dependence on renal dialysis; F99 Mental disorder, not otherwise specified; Z91.19 Patient's noncompliance with other medical treatment and regimen; Z88.6 Allergy status to analgesic agent; Z86.718 Personal history of other venous thrombosis and embolism; Z88.8 Allergy status to other drugs, medicaments and biological substances
CPT/HCPCS: 36415; 71010; 80048; 80053; 83735; 83880; 84100; 84484; 85025; 85610; 93005; 96374; 99291; J0360; J1644; J2270; J2405; J7030

== ENCOUNTER 2016-11-21 07:28 | Inpatient (IN) | payer MEDICAID ==
[~2016-11-21] VITALS: Ht 170.2 cm; Wt 61.2 kg
[2016-11-21] MEDS ORDERED: CLONIDINE 0.3MG TABLET PO ONE (08:00)
[2016-11-21] MEDS ORDERED: NITROGLYCERIN OINT 1GM/INCH UDPKT TD ONE (08:00)
[2016-11-21] MEDS ORDERED: FUROSEMIDE 40MG/4ML VIAL IVP ONE (08:00)
[2016-11-21 08:26] LABS: HEMATOCRIT. 30.5 % (42.0-52.0); HEMOGLOBIN. 9.8 g/dL (14.0-18.0); MEAN CORPUSCULAR HEMOGLOBIN 32.4 pg (28.0-32.0); MEAN CORPUSCULAR VOLUME 100.9 fL (80.0-94.0); MEAN PLATELET VOLUME 8.4 fl (7.4-10.4); PLATELET 210 x1000/uL (130-400); RED BLOOD CELL COUNT 3.02 mill/uL (4.7-6.1); RED CELL DISTRIBUTION WIDTH 21.1 % (11.6-14.6)
[2016-11-21 08:32] LABS: INR 1.1; PARTIAL THROMBOPLASTIN TIME 22.9 sec (23.4-31.0); PROTHROMBIN TIME 11.1 sec (9.4-11.6)
[2016-11-21 08:38] LABS: CARBON DIOXIDE 27 mEq/L (21-32); CHLORIDE 104 mEq/L (98-107)
[2016-11-21] MEDS ORDERED: MORPHINE SULFATE 4 MG/ML CPJ (NOT FOR IM USE) IV ONE (08:45)
[2016-11-21] MEDS ORDERED: ONDANSETRON HCL 4MG/2ML VIAL IV ONE (08:45)
[2016-11-21] MEDS ORDERED: HYDRALAZINE 20MG/ML VIAL IV ONE (09:30)
[2016-11-21 12:36] LABS: PLATELET ESTIMATE NORMAL
[2016-11-21 14:41] VITALS: BP 154/100
[2016-11-21 14:42] VITALS: BP 154/100
[2016-11-21 16:00] VITALS: BP 100/60
[2016-11-21] MEDS ORDERED: NA PHOS,M-B/NA PHOS,DI-BA ENEMA 118ML PR PRN (18:15)
[2016-11-21] MEDS ORDERED: LORAZEPAM 2MG/ML CPJ IV PRN (18:15)
[2016-11-21] MEDS ORDERED: ACETAMINOPHEN 325MG TABLET PO PRN (18:15)
[2016-11-21] MEDS ORDERED: IPRATROPIUM/ALBUTEROL 0.5-3(2.5)MG/3ML NEB INH PRN (18:15)
[2016-11-21] MEDS ORDERED: ACETAMINOPHEN 650MG SUPP PR PRN (18:15)
[2016-11-21] MEDS ORDERED: ENOXAPARIN 40MG/0.4ML SYR SUBCUT SCH (18:15)
[2016-11-21] MEDS ORDERED: DOCUSATE SODIUM 100MG CAPSULE PO PRN (18:15)
[2016-11-21] MEDS ORDERED: HYDROCODONE/ACETAMINOPHEN 5/325MG TABLET PO PRN (18:15)
[2016-11-21] MEDS ORDERED: GUAIFENESIN 200MG/10ML SUGAR FREE UDC PO PRN (18:15)
[2016-11-21] MEDS ORDERED: MAGNESIUM/ALUMINUM HYDROXIDE/SIMETHICONE 30ML UDC PO PRN (18:15)
[2016-11-21] MEDS ORDERED: DIPHENHYDRAMINE 50MG/ML VIAL IV PRN (18:15)
[2016-11-21] MEDS ORDERED: ONDANSETRON HCL 4MG/2ML VIAL IV PRN (18:15)
[2016-11-21] MEDS ORDERED: ACETAMINOPHEN 650MG/20.3ML UDC GT PRN (18:15)
[2016-11-21] MEDS ORDERED: TRAMADOL 50MG TABLET PO PRN (18:33)
[2016-11-21] MEDS: MORPHINE SULFATE 4 MG/ML CPJ (NOT FOR IM USE) IV PRN ×2 (19:37→23:47)
[2016-11-21 20:00] VITALS: BP 132/76
[2016-11-21] MEDS: SODIUM CHLORIDE 0.9% INJ 3ML FLUSH IVF SCH (20:31)
[2016-11-22] VITALS (7 sets, daily range): BP systolic 156–178; BP diastolic 93–124
[2016-11-22] MEDS: MORPHINE SULFATE 4 MG/ML CPJ (NOT FOR IM USE) IV PRN ×5 (04:30→22:59)
[2016-11-22] MEDS: CLONIDINE 0.1MG TABLET PO PRN ×2 (04:31→19:33)
[2016-11-22] MEDS: SODIUM CHLORIDE 0.9% INJ 3ML FLUSH IVF SCH ×3 (05:32→21:19)
[2016-11-22 06:36] LABS: BASOPHILS % 0.9 % (0.0-2.0); EOSINOPHILS % 6.5 % (0.0-5.0); HEMATOCRIT. 28.5 % (42.0-52.0); HEMOGLOBIN. 9.3 g/dL (14.0-18.0); LYMPHOCYTES % 19.6 % (20.0-50.0); MEAN CORPUSCULAR HEMOGLOBIN 32.8 pg (28.0-32.0); MEAN CORPUSCULAR VOLUME 101.1 fL (80.0-94.0); MEAN PLATELET VOLUME 8.6 fl (7.4-10.4); MONOCYTES % 4.4 % (2.0-8.0); NEUTROPHILS % 68.6 % (40.0-76.0); PLATELET 190 x1000/uL (130-400); RED BLOOD CELL COUNT 2.82 mill/uL (4.7-6.1); RED CELL DISTRIBUTION WIDTH 20.8 % (11.6-14.6)
[2016-11-22 07:57] LABS: CARBON DIOXIDE 25 mEq/L (21-32); CHLORIDE 100 mEq/L (98-107)
[2016-11-22 07:59] LABS: HDL CHOLESTEROL 54 mg/dL (40-59); LDL CHOLESTEROL 93 mg/dL (5-100)
[2016-11-22] MEDS: ENOXAPARIN 30MG/0.3ML SYR SUBCUT SCH (08:34)
[2016-11-22] MEDS: AMLODIPINE 10MG TABLET PO SCH (11:22)
[2016-11-23] VITALS: BP 174/126
[2016-11-23] MEDS: CLONIDINE 0.1MG TABLET PO PRN ×2 (00:46→12:36)
[2016-11-23] MEDS ORDERED: HYDRALAZINE HCL 50MG TABLET PO SCH ×2 (02:45→14:30)
[2016-11-23] MEDS: MORPHINE SULFATE 4 MG/ML CPJ (NOT FOR IM USE) IV PRN ×4 (03:41→17:18)
[2016-11-23 04:00] VITALS: BP 163/115
[2016-11-23] MEDS: SODIUM CHLORIDE 0.9% INJ 3ML FLUSH IVF SCH (06:46)
[2016-11-23 08:08] VITALS: BP 160/125
[2016-11-23] MEDS: ENOXAPARIN 30MG/0.3ML SYR SUBCUT SCH (08:36)
[2016-11-23] MEDS ORDERED: NEPVIT PO (08:48)
[2016-11-23] MEDS ORDERED: HYDR-4135 PO (08:48)
[2016-11-23] MEDS ORDERED: AMLO10TA80 PO (08:48)
[2016-11-23] MEDS ORDERED: FOLIC ACID/VITAMIN B COMP W-C TABLET PO SCH (09:00)
[2016-11-23] MEDS: AMLODIPINE 10MG TABLET PO SCH (09:00)
[2016-11-23 12:00] VITALS: BP 178/119
[2016-11-23 16:11] VITALS: BP 125/67
[2016-11-23 18:20] VITALS: BP 125/67
[2016-11-25 17:12] LABS: QFT MITOGEN VALUE 6.13 IU/mL (.); QFT TB AG MINUS NIL VALUE <0.00 IU/mL (.); QFT TB AG VALUE 0.03 IU/mL (.); QFT TB GOLD Negative (Negative)
[2016-11-30] MEDS ORDERED: GUAI600T44 PO (11:59)
[2016-11-30] MEDS ORDERED: LOSA50TA3 PO (11:59)
[2016-11-30] MEDS ORDERED: COR12 PO (11:59)
[2016-11-30] MEDS ORDERED: AZIT500T5 PO (11:59)
[2016-12-26] MEDS ORDERED: CLON1PAT38 TD (10:30)
[2016-12-26] MEDS ORDERED: LOSA50TA3 PO (10:30)
== END 2016-11-23 19:30 | disposition home or self-care (01) | DRG 199 ==
LOC: ER 08:03 → 8WST 09:37 → EDBEDREQ 09:40 → ENRESERV 12:29
PROVIDERS: ADMIT Family Medicine; ATTEND Family Medicine
DX: I16.1 Hypertensive emergency (principal); N18.6 End stage renal disease; I42.0 Dilated cardiomyopathy; F20.9 Schizophrenia, unspecified; I50.9 Heart failure, unspecified; I13.2 Hypertensive heart and chronic kidney disease with heart failure and with stage 5 chronic kidney disease, or end stage renal disease; Z99.2 Dependence on renal dialysis; Z91.14 Patient's other noncompliance with medication regimen; Z88.6 Allergy status to analgesic agent; Z91.19 Patient's noncompliance with other medical treatment and regimen
CPT/HCPCS: 36415; 71010; 72100; 80053; 80061; 84484; 85025; 85610; 85730; 86480; 87040; 93005; 93306; 96374; 96375; 99285; J0360; J1200; J1650; J1940; J2270; J2405; J7030

== ENCOUNTER 2016-11-27 19:20 | Inpatient (IN) | payer MEDICAID ==
[~2016-11-27] VITALS: Ht 170.2 cm; Wt 64.4 kg
[~2016-11-27 19:20] MED LIST changes: +AMLO10TA80 PO; -CLON0.2T PO; +HYDR-4135 PO; +NEPVIT PO
[2016-11-27] MEDS ORDERED: MORPHINE SULFATE 4 MG/ML CPJ (NOT FOR IM USE) IV STA (19:34)
[2016-11-27] MEDS ORDERED: NITROGLYCERIN OINT 1GM/INCH UDPKT TD STA (19:34)
[2016-11-27] MEDS ORDERED: ONDANSETRON HCL 4MG/2ML VIAL IV STA (19:34)
[2016-11-27 20:12] LABS: BASOPHILS % 1.2 % (0.0-2.0); EOSINOPHILS % 3.2 % (0.0-5.0); HEMATOCRIT. 28.9 % (42.0-52.0); HEMOGLOBIN. 9.3 g/dL (14.0-18.0); LYMPHOCYTES % 8.8 % (20.0-50.0); MEAN CORPUSCULAR VOLUME 99.5 fL (80.0-94.0); MEAN PLATELET VOLUME 8.8 fl (7.4-10.4); MONOCYTES % 6.7 % (2.0-8.0); NEUTROPHILS % 80.1 % (40.0-76.0); PLATELET 177 x1000/uL (130-400); RED BLOOD CELL COUNT 2.91 mill/uL (4.7-6.1); RED CELL DISTRIBUTION WIDTH 19.3 % (11.6-14.6)
[2016-11-27 20:17] LABS: INR 1.1; PARTIAL THROMBOPLASTIN TIME 25.5 sec (23.4-31.0); PROTHROMBIN TIME 11.4 sec (9.4-11.6)
[2016-11-27 20:27] LABS: CARBON DIOXIDE 26 mEq/L (21-32); CHLORIDE 104 mEq/L (98-107); CREATINE KINASE 357 IU/L (39-308); TROPONIN I 0.21 ng/mL (0.00-0.04)
[2016-11-27 21:08] LABS: BG BASE EXCESS -3.7 mmol/L (-2.0-2.0); BG CARBOXYHEMOGLOBIN 0.1 % (0.5-1.5); BG DEOXYHEMOGLOBIN 1.6 % (0.0-5.0); BG FRACTION INSPIRED OXYGEN 100; BG HCO3 ACT 20.6 mmol/L (22.0-26.0); BG METHEMOGLOBIN 0.3 % (0.0-1.5); BG OXYGEN SATURATION 98.4 % (92.0-98.5); BG PCO2 34.2 mmHg (35.0-45.0); BG PH 7.397 (7.350-7.450); BG PO2 150.7 mmHg (75.0-100.0); BG SAMPLE SITE RIGHT RADIAL; BG TOTAL HEMOGLOBIN 9.8 g/dL (12.0-18.0); BG VENT MODE MASK - NRB
[2016-11-27] MEDS ORDERED: MORPHINE SULFATE 4 MG/ML CPJ (NOT FOR IM USE) IV ONE (22:00)
[2016-11-27] MEDS ORDERED: ONDANSETRON HCL 4MG/2ML VIAL IV ONE (22:00)
[2016-11-27] MEDS ORDERED: ACETAMINOPHEN 325MG TABLET PO PRN (22:30)
[2016-11-27] MEDS ORDERED: DOCUSATE SODIUM 100MG CAPSULE PO PRN (22:30)
[2016-11-27] MEDS ORDERED: HYDROCODONE/ACETAMINOPHEN 5/325MG TABLET PO PRN (22:30)
[2016-11-27] MEDS ORDERED: ONDANSETRON HCL 4MG/2ML VIAL IV PRN (22:30)
[2016-11-27] MEDS ORDERED: IPRATROPIUM/ALBUTEROL 0.5-3(2.5)MG/3ML NEB INH PRN (22:30)
[2016-11-27] MEDS ORDERED: MAGNESIUM/ALUMINUM HYDROXIDE/SIMETHICONE 30ML UDC PO PRN (22:30)
[2016-11-28] VITALS (24 sets, daily range): BP systolic 117–195; BP diastolic 46–129
[2016-11-28] MEDS ORDERED: SODIUM POLYSTYRENE SULFONATE 15 G/60 ML BOT PO ONE (00:45)
[2016-11-28] MEDS: CLONIDINE 0.1MG TABLET PO PRN ×2 (06:37→20:33)
[2016-11-28] MEDS: HYDRALAZINE 20MG/ML VIAL IV PRN ×2 (08:28→18:02)
[2016-11-28] MEDS: GUAIFENESIN 600MG ER TABLET PO SCH ×2 (11:00→20:33)
[2016-11-28] MEDS ORDERED: IPRATROPIUM/ALBUTEROL 0.5-3(2.5)MG/3ML NEB HHN PRN (11:15)
[2016-11-28] MEDS: LOSARTAN POTASSIUM 50 MG TABLET PO SCH (11:45)
[2016-11-28] MEDS: MORPHINE SULFATE 2 MG/ML CPJ (NOT FOR IM USE) IV PRN ×3 (12:23→20:33)
[2016-11-28] MEDS: IPRATROPIUM/ALBUTEROL 0.5-3(2.5)MG/3ML NEB HHN SCH ×4 (12:37→23:21)
[2016-11-28] MEDS: NITROGLYCERIN OINT 1GM/INCH UDPKT TD SCH ×2 (14:56→21:56)
[2016-11-28] MEDS: CARVEDILOL 12.5MG TABLET PO SCH (20:34)
[2016-11-29] VITALS (10 sets, daily range): BP systolic 118–155; BP diastolic 75–120
[2016-11-29] MEDS: MORPHINE SULFATE 2 MG/ML CPJ (NOT FOR IM USE) IV PRN ×6 (00:22→21:44)
[2016-11-29] MEDS: IPRATROPIUM/ALBUTEROL 0.5-3(2.5)MG/3ML NEB HHN SCH ×5 (03:02→21:08)
[2016-11-29] MEDS: NITROGLYCERIN OINT 1GM/INCH UDPKT TD SCH ×3 (05:10→22:37)
[2016-11-29] MEDS: CLONIDINE 0.1MG TABLET PO PRN ×2 (05:15→20:54)
[2016-11-29 08:25] LABS: CREATINE KINASE MB FRACTION 2.8 ng/mL (0.5-3.6); TROPONIN I 0.15 ng/mL (0.00-0.04)
[2016-11-29] MEDS: LOSARTAN POTASSIUM 50 MG TABLET PO SCH (09:15)
[2016-11-29] MEDS: GUAIFENESIN 600MG ER TABLET PO SCH ×2 (09:15→20:54)
[2016-11-29] MEDS: CARVEDILOL 12.5MG TABLET PO SCH ×2 (09:16→20:54)
[2016-11-29] MEDS: AZITHROMYCIN 500 MG TABLET PO SCH (11:50)
[2016-11-30] VITALS (8 sets, daily range): BP systolic 111–152; BP diastolic 75–100
[2016-11-30] MEDS: IPRATROPIUM/ALBUTEROL 0.5-3(2.5)MG/3ML NEB HHN SCH ×4 (00:28→12:00)
[2016-11-30] MEDS: MORPHINE SULFATE 2 MG/ML CPJ (NOT FOR IM USE) IV PRN ×3 (01:53→10:21)
[2016-11-30] MEDS: NITROGLYCERIN OINT 1GM/INCH UDPKT TD SCH (06:07)
[2016-11-30 06:49] LABS: BASOPHILS % 1.1 % (0.0-2.0); HEMATOCRIT. 25.6 % (42.0-52.0); HEMOGLOBIN. 8.4 g/dL (14.0-18.0); LYMPHOCYTES % 15.6 % (20.0-50.0); MEAN CORPUSCULAR HEMOGLOBIN 32.2 pg (28.0-32.0); MEAN CORPUSCULAR VOLUME 98.8 fL (80.0-94.0); MONOCYTES % 6.3 % (2.0-8.0); PLATELET 206 x1000/uL (130-400); RED BLOOD CELL COUNT 2.59 mill/uL (4.7-6.1); RED CELL DISTRIBUTION WIDTH 18.7 % (11.6-14.6)
[2016-11-30 08:18] LABS: PHOSPHORUS 7.8 mg/dL (2.5-4.9)
[2016-11-30] MEDS: CARVEDILOL 12.5MG TABLET PO SCH (09:00)
[2016-11-30] MEDS: LOSARTAN POTASSIUM 50 MG TABLET PO SCH (09:00)
[2016-11-30] MEDS: GUAIFENESIN 600MG ER TABLET PO SCH (09:00)
[2016-11-30] MEDS: AZITHROMYCIN 500 MG TABLET PO SCH (09:00)
[2016-11-30] MEDS ORDERED: GUAI600T44 PO (11:59)
[2016-11-30] MEDS ORDERED: AZIT500T5 PO (11:59)
[2016-11-30] MEDS ORDERED: LOSA50TA3 PO (11:59)
[2016-11-30] MEDS ORDERED: COR12 PO (11:59)
[2016-12-26] MEDS ORDERED: LOSA50TA3 PO (10:30)
[2016-12-26] MEDS ORDERED: CLON1PAT38 TD (10:30)
== END 2016-11-30 14:05 | disposition home or self-care (01) | DRG 133 ==
LOC: ER 19:20 → EDBEDREQ 21:51 → EDBEDREQTM 21:55 → EDBEDREQSVC 11-28 03:02 → MICUSO 11-28 03:02 → CANRESERV 11-28 06:57 → ENRESERV 11-28 06:57 → EDBEDREQSVC 11-28 08:13 → ENRESERV 11-28 09:52 → 5EST 11-28 18:45
PROVIDERS: ADMIT Internal Medicine; ATTEND Internal Medicine
PROC: 5A09357 Assistance with Respiratory Ventilation, Less than 24 Consecutive Hours, Continuous Positive Airway Pressure (ICD-10-PCS; principal; 2016-11-28)
PROC: 5A1D70Z Performance of Urinary Filtration, Intermittent, Less than 6 Hours Per Day (ICD-10-PCS; 2016-11-28)
DX: J96.00 Acute respiratory failure, unspecified whether with hypoxia or hypercapnia (principal); I50.43 Acute on chronic combined systolic (congestive) and diastolic (congestive) heart failure; N18.6 End stage renal disease; I42.0 Dilated cardiomyopathy; E11.22 Type 2 diabetes mellitus with diabetic chronic kidney disease; I27.20 Pulmonary hypertension, unspecified; J44.9 Chronic obstructive pulmonary disease, unspecified; I13.2 Hypertensive heart and chronic kidney disease with heart failure and with stage 5 chronic kidney disease, or end stage renal disease; E87.5 Hyperkalemia; D63.8 Anemia in other chronic diseases classified elsewhere; F17.210 Nicotine dependence, cigarettes, uncomplicated; F99 Mental disorder, not otherwise specified; F19.10 Other psychoactive substance abuse, uncomplicated; F20.9 Schizophrenia, unspecified; I34.0 Nonrheumatic mitral (valve) insufficiency; Z86.718 Personal history of other venous thrombosis and embolism; Z91.14 Patient's other noncompliance with medication regimen; Z91.19 Patient's noncompliance with other medical treatment and regimen; Z99.2 Dependence on renal dialysis; Z88.8 Allergy status to other drugs, medicaments and biological substances; Z79.899 Other long term (current) drug therapy
CPT/HCPCS: 36415; 36600; 71010; 80048; 80053; 82375; 82550; 82553; 82805; 83605; 83690; 83735; 83880; 84100; 84132; 84443; 84484; 85025; 85610; 85730; 87040; 93005; 93970; 94640; 94664; 96374; 96375; 96376; 99285; J0360; J2270; J2405; J7030; J7620

== ENCOUNTER 2016-12-06 00:57 | Inpatient (IN) | payer MEDICAID, OTHER ==
[~2016-12-06] VITALS: Ht 170.2 cm; Wt 66.2 kg
[~2016-12-06 00:57] MED LIST changes: -AMLO10TA80 PO; +AZIT500T5 PO; +COR12 PO; +GUAI600T44 PO; -HYDR-4135 PO; +LOSA50TA3 PO
[2016-12-06] MEDS ORDERED: ONDANSETRON HCL 4MG/2ML VIAL IV STA (01:23)
[2016-12-06 01:42] LABS: HEMATOCRIT. 26.4 % (42.0-52.0); HEMOGLOBIN. 8.8 g/dL (14.0-18.0); MEAN CORPUSCULAR HEMOGLOBIN 33.2 pg (28.0-32.0); MEAN CORPUSCULAR VOLUME 99.8 fL (80.0-94.0); MEAN PLATELET VOLUME 8.4 fl (7.4-10.4); PLATELET 232 x1000/uL (130-400); RED BLOOD CELL COUNT 2.64 mill/uL (4.7-6.1); RED CELL DISTRIBUTION WIDTH 19.3 % (11.6-14.6)
[2016-12-06 01:50] LABS: CHLORIDE 104 mEq/L (98-107)
[2016-12-06 01:53] LABS: INR 1.1; PROTHROMBIN TIME 11.6 sec (9.4-11.6)
[2016-12-06 01:58] LABS: CARBON DIOXIDE 26 mEq/L (21-32)
[2016-12-06] MEDS ORDERED: HYDROMORPHONE HCL/PF 2MG/ML CPJ IV ONE (02:15)
[2016-12-06] MEDS ORDERED: METOCLOPRAMIDE HCL 10MG/2ML VIAL IV ONE (03:00)
[2016-12-06] MEDS ORDERED: SODIUM CHLORIDE 0.9% 500 ML IV ONE (03:00)
[2016-12-06] MEDS ORDERED: DIPHENHYDRAMINE 50MG/ML VIAL IV ONE (03:00)
[2016-12-06] MEDS ORDERED: LABETALOL 5MG/ML SYR 20 MG/4 ML SYRINGE IV ONE (04:30)
[2016-12-06 06:30] LABS: PLATELET ESTIMATE NORMAL
[2016-12-06 10:00] VITALS: BP 179/134
[2016-12-06] MEDS: CLONIDINE 0.1MG TABLET PO PRN ×2 (10:44→15:12)
[2016-12-06] MEDS: CARVEDILOL 12.5MG TABLET PO SCH ×3 (11:00→22:21)
[2016-12-06] MEDS: FOLIC ACID/VITAMIN B COMP W-C TABLET PO SCH ×3 (11:00→11:59)
[2016-12-06] MEDS: LOSARTAN POTASSIUM 50 MG TABLET PO SCH ×2 (11:00→15:12)
[2016-12-06] MEDS: TRAMADOL 50MG TABLET PO PRN ×2 (11:17→12:00)
[2016-12-06 12:00] VITALS: BP 164/121
[2016-12-06] MEDS ORDERED: ONDANSETRON HCL 4MG/2ML VIAL IV PRN (13:00)
[2016-12-06] MEDS: MORPHINE SULFATE 10 MG/ML CPJ IV PRN ×3 (13:23→22:29)
[2016-12-06 16:00] VITALS: BP 153/109
[2016-12-06] MEDS ORDERED: DOCUSATE SODIUM 250MG CAPSULE PO PRN (18:30)
[2016-12-06 20:00] VITALS: BP 143/93
[2016-12-07] VITALS: BP 121/84
[2016-12-07] MEDS: MORPHINE SULFATE 10 MG/ML CPJ IV PRN ×4 (03:32→15:54)
[2016-12-07 04:00] VITALS: BP 121/89
[2016-12-07 07:16] LABS: BASOPHILS % 1.1 % (0.0-2.0); EOSINOPHILS % 6.4 % (0.0-5.0); HEMATOCRIT. 24.9 % (42.0-52.0); LYMPHOCYTES % 15.7 % (20.0-50.0); MEAN CORPUSCULAR HEMOGLOBIN 32.3 pg (28.0-32.0); MEAN PLATELET VOLUME 8.8 fl (7.4-10.4); MONOCYTES % 6.6 % (2.0-8.0); NEUTROPHILS % 70.2 % (40.0-76.0); PLATELET 220 x1000/uL (130-400); RED BLOOD CELL COUNT 2.49 mill/uL (4.7-6.1); RED CELL DISTRIBUTION WIDTH 19.2 % (11.6-14.6)
[2016-12-07 08:00] VITALS: BP 169/118
[2016-12-07] MEDS: LOSARTAN POTASSIUM 50 MG TABLET PO SCH (08:02)
[2016-12-07] MEDS: CLONIDINE 0.1MG TABLET PO PRN (08:02)
[2016-12-07] MEDS: CARVEDILOL 12.5MG TABLET PO SCH (08:03)
[2016-12-07] MEDS: CALCIUM ACETATE 667MG CAPSULE PO SCH ×3 (08:03→18:24)
[2016-12-07] MEDS ORDERED: AMLODIPINE 10MG TABLET PO SCH (09:00)
[2016-12-07 09:58] LABS: PHOSPHORUS 8.7 mg/dL (2.5-4.9)
[2016-12-07 12:00] VITALS: BP 118/79
[2016-12-07] MEDS ORDERED: HEPARIN SODIUM 1,000 UNIT/1ML VIAL IV ONE (13:30)
[2016-12-07 16:00] VITALS: BP 128/85
[2016-12-07] MEDS ORDERED: EPOETIN ALFA 4000UNITS/ML VIAL SUBCUT SCH (21:00)
[2016-12-26] MEDS ORDERED: LOSA50TA3 PO (10:30)
[2016-12-26] MEDS ORDERED: CLON1PAT38 TD (10:30)
== END 2016-12-07 19:50 | disposition left against medical advice (07) | DRG 194 ==
LOC: ER 00:57 → 7WST 07:02 → ENRESERV 07:53
PROVIDERS: ADMIT Internal Medicine; ATTEND Internal Medicine
DX: I13.2 Hypertensive heart and chronic kidney disease with heart failure and with stage 5 chronic kidney disease, or end stage renal disease (principal); E43 Unspecified severe protein-calorie malnutrition; N18.6 End stage renal disease; I42.9 Cardiomyopathy, unspecified; I50.41 Acute combined systolic (congestive) and diastolic (congestive) heart failure; E11.22 Type 2 diabetes mellitus with diabetic chronic kidney disease; D63.1 Anemia in chronic kidney disease; F20.9 Schizophrenia, unspecified; I16.0 Hypertensive urgency; I34.0 Nonrheumatic mitral (valve) insufficiency; Z88.8 Allergy status to other drugs, medicaments and biological substances; Z99.2 Dependence on renal dialysis; Z86.718 Personal history of other venous thrombosis and embolism; Z91.19 Patient's noncompliance with other medical treatment and regimen; F17.200 Nicotine dependence, unspecified, uncomplicated
CPT/HCPCS: 36415; 71010; 80048; 80053; 82962; 83690; 83735; 84100; 85025; 85610; 93005; 96361; 96374; 96375; 99285; J0885; J1170; J1200; J1644; J2270; J2405; J2765; J3490; J7030

== ENCOUNTER 2016-12-12 01:19 | Inpatient (IN) | payer MEDICAID, OTHER ==
[~2016-12-12] VITALS: Ht 170.2 cm; Wt 61.2 kg
[2016-12-12] MEDS ORDERED: MORPHINE SULFATE 4 MG/ML CPJ (NOT FOR IM USE) IV STA (02:38)
[2016-12-12] MEDS ORDERED: ONDANSETRON HCL 4MG/2ML VIAL IV STA (02:38)
[2016-12-12] MEDS ORDERED: LABETALOL 5MG/ML SYR 20 MG/4 ML SYRINGE IV ONE (02:45)
[2016-12-12] MEDS ORDERED: CLONIDINE 0.3MG TABLET PO ONE (02:45)
[2016-12-12 03:05] LABS: BASOPHILS % 0.3 % (0.0-2.0); EOSINOPHILS % 4.5 % (0.0-5.0); HEMATOCRIT. 27.2 % (42.0-52.0); HEMOGLOBIN. 8.8 g/dL (14.0-18.0); LYMPHOCYTES % 12.6 % (20.0-50.0); MEAN CORPUSCULAR HEMOGLOBIN 32.2 pg (28.0-32.0); MEAN PLATELET VOLUME 8.4 fl (7.4-10.4); MONOCYTES % 6.3 % (2.0-8.0); NEUTROPHILS % 76.3 % (40.0-76.0); PLATELET 201 x1000/uL (130-400); RED BLOOD CELL COUNT 2.75 mill/uL (4.7-6.1)
[2016-12-12 03:12] LABS: INR 1.1; PROTHROMBIN TIME 11.5 sec (9.4-11.6)
[2016-12-12 03:17] LABS: CARBON DIOXIDE 27 mEq/L (21-32); CHLORIDE 102 mEq/L (98-107); TROPONIN I 0.14 ng/mL (0.00-0.04)
[2016-12-12 10:00] VITALS: BP 135/97
[2016-12-12] MEDS ORDERED: GUAIFENESIN 200MG/10ML SUGAR FREE UDC PO PRN (11:00)
[2016-12-12] MEDS ORDERED: ACETAMINOPHEN 325MG TABLET PO PRN (11:00)
[2016-12-12] MEDS ORDERED: IPRATROPIUM/ALBUTEROL 0.5-3(2.5)MG/3ML NEB INH PRN (11:00)
[2016-12-12] MEDS ORDERED: ONDANSETRON HCL 4MG/2ML VIAL IV PRN (11:00)
[2016-12-12] MEDS ORDERED: DOCUSATE SODIUM 100MG CAPSULE PO PRN (11:00)
[2016-12-12] MEDS ORDERED: HYDROCODONE/ACETAMINOPHEN 5/325MG TABLET PO PRN (11:00)
[2016-12-12] MEDS ORDERED: DIPHENHYDRAMINE 50MG/ML VIAL IV PRN (11:00)
[2016-12-12 12:00] VITALS: BP 156/116
[2016-12-12] MEDS: CLONIDINE 0.2MG TABLET PO PRN (15:17)
[2016-12-12] MEDS: HYDRALAZINE HCL 50MG TABLET PO SCH ×2 (15:18→22:00)
[2016-12-12] MEDS: HYDROMORPHONE HCL/PF 2MG/ML CPJ IV PRN ×2 (15:19→21:26)
[2016-12-12 15:23] LABS: CREATINE KINASE MB FRACTION 1.9 ng/mL (0.5-3.6); TROPONIN I 0.12 ng/mL (0.00-0.04)
[2016-12-12 16:00] VITALS: BP 148/111
[2016-12-12] MEDS: CALCIUM ACETATE 667MG CAPSULE PO SCH (17:07)
[2016-12-12 20:00] VITALS: BP 146/100
[2016-12-12 23:20] LABS: TROPONIN I 0.11 ng/mL (0.00-0.04)
[2016-12-12 23:21] LABS: CREATINE KINASE MB FRACTION 2.1 ng/mL (0.5-3.6)
[2016-12-13] VITALS: BP 129/75
[2016-12-13 04:00] VITALS: BP 151/109
[2016-12-13] MEDS: HYDROMORPHONE HCL/PF 2MG/ML CPJ IV PRN ×3 (05:10→16:52)
[2016-12-13] MEDS: HYDRALAZINE HCL 50MG TABLET PO SCH (05:46)
[2016-12-13 06:30] VITALS: BP 146/98
[2016-12-13 07:01] LABS: BASOPHILS % 1.1 % (0.0-2.0); EOSINOPHILS % 7.2 % (0.0-5.0); HEMATOCRIT. 28.5 % (42.0-52.0); HEMOGLOBIN. 9.3 g/dL (14.0-18.0); LYMPHOCYTES % 18.2 % (20.0-50.0); MEAN CORPUSCULAR HEMOGLOBIN 32.9 pg (28.0-32.0); MEAN CORPUSCULAR VOLUME 100.5 fL (80.0-94.0); MEAN PLATELET VOLUME 8.8 fl (7.4-10.4); MONOCYTES % 5.5 % (2.0-8.0); PLATELET 182 x1000/uL (130-400); RED BLOOD CELL COUNT 2.83 mill/uL (4.7-6.1); RED CELL DISTRIBUTION WIDTH 19.1 % (11.6-14.6)
[2016-12-13 08:00] VITALS: BP 147/107
[2016-12-13] MEDS ORDERED: ASPIRIN 81MG EC TABLET PO SCH (09:00)
[2016-12-13] MEDS ORDERED: LOSARTAN POTASSIUM 50 MG TABLET PO SCH (09:00)
[2016-12-13] MEDS ORDERED: AMLODIPINE 10MG TABLET PO SCH (09:00)
[2016-12-13] MEDS: CALCIUM ACETATE 667MG CAPSULE PO SCH ×3 (09:08→16:53)
[2016-12-13 10:03] LABS: CARBON DIOXIDE 25 mEq/L (21-32); CHLORIDE 102 mEq/L (98-107); HDL CHOLESTEROL 48 mg/dL (40-59); LDL CHOLESTEROL 108 mg/dL (5-100)
[2016-12-13] MEDS ORDERED: FOLIC ACID/VITAMIN B COMP W-C TABLET PO SCH (11:30)
[2016-12-13] MEDS: CLONIDINE 0.2MG TABLET PO PRN (12:22)
[2016-12-13] MEDS: HYDRALAZINE HCL 100MG TABLET PO SCH ×2 (14:00→14:57)
[2016-12-13 15:05] VITALS: BP 107/67
[2016-12-13 16:52] VITALS: BP 130/96
[2016-12-13] MEDS ORDERED: ATORVASTATIN CALCIUM 10MG TABLET PO SCH (21:00)
[2016-12-13] MEDS ORDERED: EPOETIN ALFA 4000UNITS/ML VIAL SUBCUT SCH (21:00)
[2016-12-26] MEDS ORDERED: CLON1PAT38 TD (10:30)
[2016-12-26] MEDS ORDERED: LOSA50TA3 PO (10:30)
== END 2016-12-13 17:10 | disposition left against medical advice (07) | DRG 194 ==
LOC: ER 01:19 → 8WST 06:25 → EDBEDREQSVC 06:28 → EDBEDREQ 06:28 → EDBEDREQTM 06:28 → ENRESERV 07:51 → 8WST 09:54
PROVIDERS: ADMIT Hospitalist; ATTEND Hospitalist
PROC: 5A1D70Z Performance of Urinary Filtration, Intermittent, Less than 6 Hours Per Day (ICD-10-PCS; principal; 2016-12-12)
DX: I13.2 Hypertensive heart and chronic kidney disease with heart failure and with stage 5 chronic kidney disease, or end stage renal disease (principal); E43 Unspecified severe protein-calorie malnutrition; N18.6 End stage renal disease; R65.10 Systemic inflammatory response syndrome (SIRS) of non-infectious origin without acute organ dysfunction; E11.22 Type 2 diabetes mellitus with diabetic chronic kidney disease; I42.9 Cardiomyopathy, unspecified; F20.9 Schizophrenia, unspecified; I50.21 Acute systolic (congestive) heart failure; D63.1 Anemia in chronic kidney disease; I16.0 Hypertensive urgency; K21.9 Gastro-esophageal reflux disease without esophagitis; Z79.899 Other long term (current) drug therapy; Z88.8 Allergy status to other drugs, medicaments and biological substances; Z86.718 Personal history of other venous thrombosis and embolism; Z91.15 Patient's noncompliance with renal dialysis; Z91.19 Patient's noncompliance with other medical treatment and regimen
CPT/HCPCS: 36415; 71010; 80053; 80061; 82550; 82553; 82962; 84484; 85025; 85610; 93005; 93970; 96374; 96375; 99285; J0885; J1170; J2270; J2405; J3490

== ENCOUNTER 2017-01-25 23:27 | Emergency (ER) | payer MEDICAID, OTHER ==
[~2017-01-25] VITALS: Ht 170.2 cm; Wt 61.0 kg
[~2017-01-25 23:27] MED LIST changes: +AMLO10TA80 PO; +CLON0.2T PO; +CLON1PAT38 TD; -COR12 PO
[2017-01-26] MEDS ORDERED: ONDANSETRON HCL 4MG/2ML VIAL IV STA (02:02)
[2017-01-26] MEDS ORDERED: MORPHINE SULFATE 4 MG/ML CPJ (NOT FOR IM USE) IV STA (02:02)
[2017-01-26 02:27] LABS: BASOPHILS % 1.5 % (0.0-2.0); EOSINOPHILS % 9.3 % (0.0-5.0); HEMATOCRIT. 26.6 % (42.0-52.0); HEMOGLOBIN. 8.7 g/dL (14.0-18.0); LYMPHOCYTES % 13.1 % (20.0-50.0); MEAN CORPUSCULAR HEMOGLOBIN 32.1 pg (28.0-32.0); MEAN CORPUSCULAR VOLUME 97.3 fL (80.0-94.0); MEAN PLATELET VOLUME 7.5 fl (7.4-10.4); MONOCYTES % 5.9 % (2.0-8.0); NEUTROPHILS % 70.2 % (40.0-76.0); PLATELET 242 x1000/uL (130-400); RED BLOOD CELL COUNT 2.73 mill/uL (4.7-6.1); RED CELL DISTRIBUTION WIDTH 16.6 % (11.6-14.6)
[2017-01-26] MEDS ORDERED: MORPHINE SULFATE 4 MG/ML CPJ (NOT FOR IM USE) IV ONE (04:30)
[2017-01-26 04:39] VITALS: BP 173/81
== END 2017-01-26 04:55 | disposition home or self-care (01) ==
LOC: ER 23:27
DX: M54.9 Dorsalgia, unspecified (principal); F17.200 Nicotine dependence, unspecified, uncomplicated; I12.0 Hypertensive chronic kidney disease with stage 5 chronic kidney disease or end stage renal disease; N18.6 End stage renal disease; Z99.2 Dependence on renal dialysis; Z88.6 Allergy status to analgesic agent; Z98.890 Other specified postprocedural states
CPT/HCPCS: 36415; 71010; 80048; 85025; 93005; 96374; 96375; 96376; 99285; J2270; J2405; Z7610

== ENCOUNTER 2017-02-02 23:05 | Inpatient (IN) | payer MEDICAID, OTHER ==
[~2017-02-02] VITALS: Ht 170.2 cm; Wt 61.2 kg
[2017-02-03] MEDS ORDERED: ONDANSETRON HCL 4MG/2ML VIAL IV STA (05:39)
[2017-02-03] MEDS ORDERED: CLONIDINE 0.2MG TABLET PO ONE (05:45)
[2017-02-03 07:48] LABS: EOSINOPHILS % 7.3 % (0.0-5.0); HEMATOCRIT. 26.5 % (42.0-52.0); HEMOGLOBIN. 8.6 g/dL (14.0-18.0); LYMPHOCYTES % 10.5 % (20.0-50.0); MEAN CORPUSCULAR HEMOGLOBIN 31.4 pg (28.0-32.0); MEAN CORPUSCULAR VOLUME 96.7 fL (80.0-94.0); MEAN PLATELET VOLUME 8.8 fl (7.4-10.4); MONOCYTES % 3.4 % (2.0-8.0); NEUTROPHILS % 78.8 % (40.0-76.0); PLATELET 225 x1000/uL (130-400); RED BLOOD CELL COUNT 2.74 mill/uL (4.7-6.1); RED CELL DISTRIBUTION WIDTH 16.8 % (11.6-14.6)
[2017-02-03 07:53] LABS: INR 1.1; PROTHROMBIN TIME 11.8 sec (9.4-11.6)
[2017-02-03 08:04] LABS: CARBON DIOXIDE 24 mEq/L (21-32); CHLORIDE 104 mEq/L (98-107)
[2017-02-03] MEDS ORDERED: HYDRALAZINE 20MG/ML VIAL IV ONE (12:30)
[2017-02-03] MEDS ORDERED: DIPHENHYDRAMINE 50MG/ML VIAL IV PRN (13:45)
[2017-02-03] MEDS ORDERED: CEFTRIAXONE 1 G PREMIX 50 ML IV SCH (13:45)
[2017-02-03] MEDS ORDERED: DOCUSATE SODIUM 100MG CAPSULE PO PRN (13:45)
[2017-02-03] MEDS ORDERED: CLONIDINE 0.2MG TABLET PO SCH (13:45)
[2017-02-03] MEDS ORDERED: HYDROCODONE/ACETAMINOPHEN 10/325MG TABLET PO PRN (13:45)
[2017-02-03] MEDS ORDERED: HYDROCODONE/ACETAMINOPHEN 5/325MG TABLET PO PRN (13:45)
[2017-02-03] MEDS ORDERED: ONDANSETRON HCL 4MG/2ML VIAL IV PRN (13:45)
[2017-02-03] MEDS ORDERED: CEFTRIAXONE 1 G PREMIX 50 ML IV NR (14:00)
[2017-02-03] MEDS ORDERED: AMLODIPINE 10MG TABLET PO SCH (14:00)
[2017-02-03] MEDS ORDERED: HYDRALAZINE 20MG/ML VIAL IV NR (14:00)
[2017-02-03] MEDS ORDERED: LOSARTAN POTASSIUM 50 MG TABLET PO SCH (14:30)
[2017-02-03] MEDS ORDERED: CLONIDINE HCL 0.2MG/24HR PATCH TD SCH (15:00)
[2017-02-03] MEDS ORDERED: MORPHINE SULFATE 2 MG/ML CPJ (NOT FOR IM USE) IV NR (16:30)
[2017-02-03 16:55] LABS: CLARITY URINE CLEAR (CLEAR); COLOR URINE YELLOW (YELLOW); KETONES URINE NEGATIVE (NEGATIVE); LEUKOCYTE ESTERASE URINE NEGATIVE (NEGATIVE); NITRITE URINE NEGATIVE (NEGATIVE); OCCULT BLOOD URINE NEGATIVE (NEGATIVE); PH URINE >=9.0 (4.5-8.0); PROTEIN URINE 3+ (NEGATIVE); SPECIFIC GRAVITY URINE 1.014 (1.005-1.030); UROBILINOGEN URINE 0.2 E.U./dL (0.2-1.0)
[2017-02-03 17:07] LABS: *AMPHETAMINES SCREEN URINE NEGATIVE (NEGATIVE); *BARBITURATES SCREEN URINE NEGATIVE (NEGATIVE); *BENZODIAZEPINES SCREEN URINE NEGATIVE (NEGATIVE); *COCAINE SCREEN URINE NEGATIVE (NEGATIVE); CANNABINOID URINE SCREEN NEGATIVE (NEGATIVE); METHADONE URINE SCREEN NEGATIVE (NEGATIVE); OPIATES URINE SCREEN NEGATIVE (NEGATIVE); PHENCYCLIDINE URINE SCREEN NEGATIVE (NEGATIVE)
[2017-02-03] MEDS: CLONIDINE 0.1MG TABLET PO PRN (22:10)
[2017-02-04] VITALS (7 sets, daily range): BP systolic 162–190; BP diastolic 98–140
[2017-02-04] MEDS: MORPHINE SULFATE 2 MG/ML CPJ (NOT FOR IM USE) IV PRN ×4 (00:21→18:04)
[2017-02-04] MEDS: CLONIDINE 0.1MG TABLET PO PRN ×2 (04:33→18:02)
[2017-02-04] MEDS: CLONIDINE 0.2MG TABLET PO SCH ×2 (07:00→13:03)
[2017-02-04] MEDS ORDERED: AMLODIPINE 10MG TABLET PO SCH (09:00)
[2017-02-04] MEDS ORDERED: FOLIC ACID/VITAMIN B COMP W-C TABLET PO SCH (09:00)
[2017-02-04] MEDS ORDERED: LOSARTAN POTASSIUM 50 MG TABLET PO SCH (09:00)
[2017-02-04] MEDS ORDERED: CEFTRIAXONE 1 G PREMIX 50 ML IV SCH (14:00)
[2017-02-04] MEDS ORDERED: NIFEDIPINE XL 30MG TAB PO SCH (15:00)
[2017-02-04 16:03] LABS: BASOPHILS % 1.4 % (0.0-2.0); HEMATOCRIT. 24.8 % (42.0-52.0); LYMPHOCYTES % 18.3 % (20.0-50.0); MEAN CORPUSCULAR HEMOGLOBIN 31.3 pg (28.0-32.0); MEAN CORPUSCULAR VOLUME 96.9 fL (80.0-94.0); MEAN PLATELET VOLUME 8.8 fl (7.4-10.4); MONOCYTES % 3.6 % (2.0-8.0); NEUTROPHILS % 65.7 % (40.0-76.0); PLATELET 218 x1000/uL (130-400); RED BLOOD CELL COUNT 2.56 mill/uL (4.7-6.1); RED CELL DISTRIBUTION WIDTH 16.8 % (11.6-14.6)
[2017-02-04 16:29] LABS: CHLORIDE 100 mEq/L (98-107)
[2017-02-04] MEDS ORDERED: HEPARIN SODIUM 1,000 UNIT/1ML VIAL IV NR (16:30)
[2017-02-04 16:39] LABS: CARBON DIOXIDE 25 mEq/L (21-32); HDL CHOLESTEROL 49 mg/dL (40-59); LDL CHOLESTEROL 109 mg/dL (5-100); PHOSPHORUS 7.9 mg/dL (2.5-4.9)
== END 2017-02-04 18:50 | disposition left against medical advice (07) | DRG 133 ==
LOC: ER 23:05 → 8WST 02-03 09:25 → EDBEDREQ 02-03 10:40 → ENRESERV 02-03 19:47 → CANRESERV 02-03 19:47 → EDBEDREQTM 02-03 20:32 → EDBEDREQSVC 02-03 20:32 → ENRESERV 02-04 03:01
PROVIDERS: ADMIT Internal Medicine; ATTEND Internal Medicine
PROC: 5A1D70Z Performance of Urinary Filtration, Intermittent, Less than 6 Hours Per Day (ICD-10-PCS; principal; 2017-02-04)
DX: J96.20 Acute and chronic respiratory failure, unspecified whether with hypoxia or hypercapnia (principal); I13.2 Hypertensive heart and chronic kidney disease with heart failure and with stage 5 chronic kidney disease, or end stage renal disease; N18.6 End stage renal disease; I42.0 Dilated cardiomyopathy; J44.1 Chronic obstructive pulmonary disease with (acute) exacerbation; F20.9 Schizophrenia, unspecified; F17.210 Nicotine dependence, cigarettes, uncomplicated; D64.9 Anemia, unspecified; Z53.21 Procedure and treatment not carried out due to patient leaving prior to being seen by health care provider; G89.29 Other chronic pain; M54.5 Low back pain; I50.30 Unspecified diastolic (congestive) heart failure; I73.9 Peripheral vascular disease, unspecified; Z79.899 Other long term (current) drug therapy; Z86.718 Personal history of other venous thrombosis and embolism; Z88.6 Allergy status to analgesic agent; Z88.8 Allergy status to other drugs, medicaments and biological substances; Z91.19 Patient's noncompliance with other medical treatment and regimen; Z99.2 Dependence on renal dialysis
CPT/HCPCS: 36415; 71010; 80053; 80061; 80305; 81001; 83690; 84100; 84484; 85025; 85610; 87040; 87804; 93005; 96365; 96375; 96376; 99285; C1893; J0360; J0696; J1200; J1644; J2270; J2405; J7030; J7040

== ENCOUNTER 2017-02-15 23:06 | Inpatient (IN) | payer MEDICAID ==
[~2017-02-15] VITALS: Ht 170.2 cm; Wt 61.2 kg
[2017-02-16] MEDS ORDERED: ONDANSETRON HCL 4MG/2ML VIAL IV STA (01:59)
[2017-02-16] MEDS ORDERED: MORPHINE SULFATE 4 MG/ML CPJ (NOT FOR IM USE) IV STA (01:59)
[2017-02-16 02:27] LABS: HEMATOCRIT. 26.6 % (42.0-52.0); HEMOGLOBIN. 8.6 g/dL (14.0-18.0); MEAN CORPUSCULAR HEMOGLOBIN 30.7 pg (28.0-32.0); MEAN PLATELET VOLUME 8.5 fl (7.4-10.4); PLATELET 253 x1000/uL (130-400)
[2017-02-16 02:28] LABS: CHLORIDE 102 mEq/L (98-107)
[2017-02-16 02:29] LABS: INR 1.1; PROTHROMBIN TIME 11.9 sec (9.4-11.6)
[2017-02-16] MEDS ORDERED: LABETALOL 5MG/ML SYR 20 MG/4 ML SYRINGE IV ONE (02:30)
[2017-02-16 02:37] LABS: CARBON DIOXIDE 23 mEq/L (21-32)
[2017-02-16 03:34] LABS: PLATELET ESTIMATE NORMAL
[2017-02-16 14:00] VITALS: BP 190/147
[2017-02-16] MEDS ORDERED: CLONIDINE 0.2MG TABLET PO PRN (17:00)
[2017-02-16] MEDS: ONDANSETRON HCL 4MG/2ML VIAL IV PRN ×2 (17:13→22:43)
[2017-02-16] MEDS: CARVEDILOL 12.5MG TABLET PO SCH ×2 (17:31→22:18)
[2017-02-16] MEDS: HYDRALAZINE HCL 50MG TABLET PO SCH ×2 (17:33→22:18)
[2017-02-16] MEDS: MORPHINE SULFATE 4 MG/ML CPJ (NOT FOR IM USE) IV PRN ×2 (17:37→22:42)
[2017-02-16] MEDS ORDERED: SEVELAMER CARBONATE 800 MG TABLET PO SCH (17:50)
[2017-02-16 18:09] VITALS: BP 176/130
[2017-02-16] MEDS ORDERED: GENTAMICIN 100MG PREMIX 100 ML IV ONE (18:15)
[2017-02-16] MEDS ORDERED: VANCOMYCIN 1 GM IV ONE (18:15)
[2017-02-16] MEDS: SEVELAMER CARBONATE 800 MG TABLET PO NR ×2 (18:47→19:21)
[2017-02-16 20:00] VITALS: BP 168/127
[2017-02-16] MEDS ORDERED: GENTAMICIN 120MG PREMIX 100 ML IV NR (20:00)
[2017-02-16] MEDS ORDERED: VANCOMYCIN 1250MG in DEXTROSE 5% WATER 250ML IV NR (20:30)
[2017-02-16] MEDS ORDERED: EPOETIN ALFA 10000UNITS/ML VIAL SUBCUT SCH (21:00)
[2017-02-16 22:20] VITALS: BP 165/125
[2017-02-17] MEDS: MORPHINE SULFATE 4 MG/ML CPJ (NOT FOR IM USE) IV PRN (06:10)
[2017-02-17 06:32] VITALS: BP 166/95
[2017-02-17 07:03] LABS: BASOPHILS % 0.6 % (0.0-2.0); EOSINOPHILS % 1.5 % (0.0-5.0); HEMATOCRIT. 23.3 % (42.0-52.0); HEMOGLOBIN. 7.6 g/dL (14.0-18.0); LYMPHOCYTES % 10.1 % (20.0-50.0); MEAN CORPUSCULAR HEMOGLOBIN 30.2 pg (28.0-32.0); MEAN CORPUSCULAR VOLUME 92.9 fL (80.0-94.0); NEUTROPHILS % 80.8 % (40.0-76.0); PLATELET 269 x1000/uL (130-400); RED BLOOD CELL COUNT 2.51 mill/uL (4.7-6.1); RED CELL DISTRIBUTION WIDTH 15.9 % (11.6-14.6)
[2017-02-17] MEDS ORDERED: SEVELAMER CARBONATE 800 MG TABLET PO SCH (07:50)
[2017-02-17 08:15] LABS: PHOSPHORUS 4.3 mg/dL (2.5-4.9)
[2017-02-17] MEDS ORDERED: AMLODIPINE 10MG TABLET PO SCH (09:00)
[2017-02-17] MEDS ORDERED: HYDRALAZINE HCL 100MG TABLET PO SCH (17:00)
[2017-02-17] MEDS ORDERED: GENTAMICIN 120MG PREMIX 100 ML IV NR (18:30)
[2017-02-17] MEDS ORDERED: VANCOMYCIN 1250MG in DEXTROSE 5% WATER 250ML IV NR (18:30)
[2017-02-17] MEDS ORDERED: EPOETIN ALFA 10000UNITS/ML VIAL SUBCUT SCH (21:00)
== END 2017-02-17 06:45 | disposition left against medical advice (07) | DRG 133 ==
LOC: ER 23:06 → 6WST 02-16 05:03 → EDBEDREQTM 02-16 05:06 → EDBEDREQ 02-16 05:06 → ENRESERV 02-16 14:11 → 6WST 02-17 02:30
PROVIDERS: ADMIT Internal Medicine; ATTEND Internal Medicine
PROC: 5A1D70Z Performance of Urinary Filtration, Intermittent, Less than 6 Hours Per Day (ICD-10-PCS; principal; 2017-02-16)
DX: J96.00 Acute respiratory failure, unspecified whether with hypoxia or hypercapnia (principal); I50.23 Acute on chronic systolic (congestive) heart failure; J84.9 Interstitial pulmonary disease, unspecified; N18.6 End stage renal disease; I42.9 Cardiomyopathy, unspecified; E44.1 Mild protein-calorie malnutrition; F20.9 Schizophrenia, unspecified; I13.2 Hypertensive heart and chronic kidney disease with heart failure and with stage 5 chronic kidney disease, or end stage renal disease; D63.8 Anemia in other chronic diseases classified elsewhere; F17.210 Nicotine dependence, cigarettes, uncomplicated; G89.29 Other chronic pain; M54.9 Dorsalgia, unspecified; Z53.21 Procedure and treatment not carried out due to patient leaving prior to being seen by health care provider; Z79.899 Other long term (current) drug therapy; Z88.8 Allergy status to other drugs, medicaments and biological substances; Z91.19 Patient's noncompliance with other medical treatment and regimen; Z86.718 Personal history of other venous thrombosis and embolism; Z99.2 Dependence on renal dialysis; Z68.21 Body mass index [BMI] 21.0-21.9, adult
CPT/HCPCS: 36415; 71045; 80048; 80053; 84100; 85025; 85610; 93005; 99285; J0885; J1580; J2270; J2405; J3370; J3490; J7030; J7050; J7060

== ENCOUNTER 2017-02-23 01:53 | Inpatient (IN) | payer MEDICAID ==
[~2017-02-23] VITALS: Ht 170.2 cm; Wt 51.7 kg
[2017-02-23] MEDS ORDERED: ONDANSETRON HCL 4MG/2ML VIAL IV STA (04:19)
[2017-02-23] MEDS ORDERED: MORPHINE SULFATE 4 MG/ML CPJ (NOT FOR IM USE) IV STA (04:19)
[2017-02-23] MEDS ORDERED: LABETALOL 5MG/ML SYR 20 MG/4 ML SYRINGE IV ONE (04:30)
[2017-02-23 05:12] LABS: CARBON DIOXIDE 21 mEq/L (21-32); CHLORIDE 101 mEq/L (98-107)
[2017-02-23 05:23] LABS: BASOPHILS % 0.6 % (0.0-2.0); EOSINOPHILS % 3.8 % (0.0-5.0); HEMATOCRIT. 25.1 % (42.0-52.0); HEMOGLOBIN. 7.9 g/dL (14.0-18.0); LYMPHOCYTES % 8.9 % (20.0-50.0); MEAN CORPUSCULAR HEMOGLOBIN 30.1 pg (28.0-32.0); MEAN CORPUSCULAR VOLUME 96.1 fL (80.0-94.0); MEAN PLATELET VOLUME 9.3 fl (7.4-10.4); MONOCYTES % 4.5 % (2.0-8.0); NEUTROPHILS % 82.2 % (40.0-76.0); PLATELET 175 x1000/uL (130-400); RED BLOOD CELL COUNT 2.62 mill/uL (4.7-6.1); RED CELL DISTRIBUTION WIDTH 17.7 % (11.6-14.6)
[2017-02-23] MEDS ORDERED: MAGNESIUM/ALUMINUM HYDROXIDE/SIMETHICONE 30ML UDC PO PRN (07:45)
[2017-02-23] MEDS ORDERED: CLONIDINE 0.1MG TABLET PO PRN (07:45)
[2017-02-23] MEDS ORDERED: IPRATROPIUM/ALBUTEROL 0.5-3(2.5)MG/3ML NEB INH PRN (07:45)
[2017-02-23] MEDS ORDERED: LORAZEPAM 2MG/ML CPJ IV PRN (07:45)
[2017-02-23] MEDS ORDERED: DIPHENHYDRAMINE 50MG/ML VIAL IV PRN (07:45)
[2017-02-23] MEDS ORDERED: GUAIFENESIN 200MG/10ML SUGAR FREE UDC PO PRN (07:45)
[2017-02-23] MEDS ORDERED: ONDANSETRON HCL 4MG/2ML VIAL IV PRN (07:45)
[2017-02-23] MEDS ORDERED: NA PHOS,M-B/NA PHOS,DI-BA ENEMA 118ML PR PRN (07:45)
[2017-02-23] MEDS ORDERED: DOCUSATE SODIUM 100MG CAPSULE PO PRN (07:45)
[2017-02-23] MEDS ORDERED: ENOXAPARIN 30MG/0.3ML SYR SUBCUT SCH (08:10)
[2017-02-23] MEDS ORDERED: LEVOFLOXACIN 500MG PREMIX 100 ML IV NR (08:10)
[2017-02-23] MEDS ORDERED: ASPIRIN 81MG EC TABLET PO NR (09:15)
[2017-02-23 10:00] VITALS: BP 171/131
[2017-02-23 10:30] VITALS: BP 171/131
[2017-02-23] MEDS: MORPHINE SULFATE 4 MG/ML CPJ (NOT FOR IM USE) IV PRN ×3 (11:02→19:38)
[2017-02-23] MEDS ORDERED: HYDRALAZINE HCL 50MG TABLET PO SCH (14:00)
[2017-02-23 18:12] LABS: CREATINE KINASE MB FRACTION 5.6 ng/mL (0.5-3.6); TROPONIN I 0.32 ng/mL (0.00-0.04)
[2017-02-23] MEDS ORDERED: HEPARIN SODIUM 1,000 UNIT/1ML VIAL IV NR (18:45)
[2017-02-23 19:38] VITALS: BP 154/70
[2017-02-24] MEDS ORDERED: ASPIRIN 81MG EC TABLET PO SCH (09:00)
[2017-02-25] MEDS ORDERED: LEVOFLOXACIN 500MG PREMIX 100 ML IV SCH (08:00)
== END 2017-02-23 19:50 | disposition left against medical advice (07) | DRG 133 ==
LOC: ER 01:53 → 7WST 05:05 → ENRESERV 08:25
PROVIDERS: ADMIT Internal Medicine; ATTEND Internal Medicine
DX: J96.00 Acute respiratory failure, unspecified whether with hypoxia or hypercapnia (principal); J69.0 Pneumonitis due to inhalation of food and vomit; I13.2 Hypertensive heart and chronic kidney disease with heart failure and with stage 5 chronic kidney disease, or end stage renal disease; I27.20 Pulmonary hypertension, unspecified; N18.6 End stage renal disease; R65.10 Systemic inflammatory response syndrome (SIRS) of non-infectious origin without acute organ dysfunction; E46 Unspecified protein-calorie malnutrition; I50.42 Chronic combined systolic (congestive) and diastolic (congestive) heart failure; J44.1 Chronic obstructive pulmonary disease with (acute) exacerbation; E87.5 Hyperkalemia; E78.5 Hyperlipidemia, unspecified; F17.210 Nicotine dependence, cigarettes, uncomplicated; D64.9 Anemia, unspecified; R74.0 Nonspecific elevation of levels of transaminase and lactic acid dehydrogenase [LDH]; M54.5 Low back pain; Z53.21 Procedure and treatment not carried out due to patient leaving prior to being seen by health care provider; G89.29 Other chronic pain; I25.10 Atherosclerotic heart disease of native coronary artery without angina pectoris; Z79.899 Other long term (current) drug therapy; Z87.01 Personal history of pneumonia (recurrent); Z91.19 Patient's noncompliance with other medical treatment and regimen; Z99.2 Dependence on renal dialysis; Z88.8 Allergy status to other drugs, medicaments and biological substances; Z68.1 Body mass index [BMI] 19.9 or less, adult; Z71.6 Tobacco abuse counseling
CPT/HCPCS: 36415; 71045; 80048; 80053; 82550; 82553; 83036; 83880; 84484; 85025; 85379; 87070; 93005; 93306; 96374; 96375; 99291; J1644; J1650; J1956; J2270; J2405; J3490

== ENCOUNTER 2017-03-21 00:37 | Emergency (ER) | payer MEDICAID ==
[~2017-03-21] VITALS: Ht 170.2 cm; Wt 62.0 kg
[2017-03-21 01:51] VITALS: BP 206/139
== END 2017-03-21 03:30 | disposition left against medical advice (07) ==
LOC: ER 01:21
DX: Z53.21 Procedure and treatment not carried out due to patient leaving prior to being seen by health care provider (principal); F17.200 Nicotine dependence, unspecified, uncomplicated; I12.9 Hypertensive chronic kidney disease with stage 1 through stage 4 chronic kidney disease, or unspecified chronic kidney disease; N18.9 Chronic kidney disease, unspecified; Z99.2 Dependence on renal dialysis

== ENCOUNTER 2017-03-27 05:16 | Emergency (ER) | payer MEDICAID ==
[~2017-03-27] VITALS: Ht 170.2 cm; Wt 62.0 kg
[2017-03-27 06:40] VITALS: BP 151/110
[2017-03-27 07:24] LABS: BASOPHILS % 1.3 % (0.0-2.0); EOSINOPHILS % 9.2 % (0.0-5.0); HEMATOCRIT. 30.5 % (42.0-52.0); HEMOGLOBIN. 9.5 g/dL (14.0-18.0); LYMPHOCYTES % 17.1 % (20.0-50.0); MEAN CORPUSCULAR HEMOGLOBIN 30.5 pg (28.0-32.0); MEAN CORPUSCULAR VOLUME 97.6 fL (80.0-94.0); MONOCYTES % 9.1 % (2.0-8.0); NEUTROPHILS % 63.3 % (40.0-76.0); PLATELET 225 x1000/uL (130-400); RED BLOOD CELL COUNT 3.12 mill/uL (4.7-6.1); RED CELL DISTRIBUTION WIDTH 19.7 % (11.6-14.6)
[2017-03-27 07:40] LABS: CHLORIDE 99 mEq/L (98-107); TROPONIN I 0.13 ng/mL (0.00-0.04)
[2017-03-27] MEDS ORDERED: BENZONATATE 200MG CAPSULE PO ONE (08:00)
== END 2017-03-27 09:38 | disposition home or self-care (01) ==
LOC: ER 05:16
DX: R05 Cough (principal); I12.0 Hypertensive chronic kidney disease with stage 5 chronic kidney disease or end stage renal disease; N18.6 End stage renal disease; D64.9 Anemia, unspecified; Z99.2 Dependence on renal dialysis; F17.210 Nicotine dependence, cigarettes, uncomplicated; Z71.6 Tobacco abuse counseling; Z88.6 Allergy status to analgesic agent; Z59.0 Homelessness; Z79.899 Other long term (current) drug therapy
CPT/HCPCS: 36415; 71045; 80053; 83605; 83690; 84484; 85025; 93005; 99285; 99406

== ENCOUNTER 2017-04-23 20:10 | Emergency (ER) | payer MEDICAID ==
[~2017-04-23] VITALS: Ht 170.2 cm; Wt 61.0 kg
[2017-04-24] MEDS ORDERED: CLONIDINE 0.1MG TABLET PO STA (01:35)
[2017-04-24 02:13] LABS: BASOPHILS % 0.1 % (0.0-2.0); EOSINOPHILS % 7.2 % (0.0-5.0); HEMATOCRIT. 32.8 % (42.0-52.0); HEMOGLOBIN. 10.7 g/dL (14.0-18.0); LYMPHOCYTES % 14.4 % (20.0-50.0); MEAN CORPUSCULAR HEMOGLOBIN 31.2 pg (28.0-32.0); MEAN CORPUSCULAR VOLUME 96.2 fL (80.0-94.0); MEAN PLATELET VOLUME 8.9 fl (7.4-10.4); MONOCYTES % 7.1 % (2.0-8.0); NEUTROPHILS % 71.2 % (40.0-76.0); PLATELET 219 x1000/uL (130-400); RED BLOOD CELL COUNT 3.41 mill/uL (4.7-6.1); RED CELL DISTRIBUTION WIDTH 18.1 % (11.6-14.6)
[2017-04-24] MEDS ORDERED: ACETAMINOPHEN 325MG TABLET PO NR (02:15)
[2017-04-24 02:18] LABS: INR 1.1; PROTHROMBIN TIME 11.5 sec (9.4-11.6)
[2017-04-24 02:28] VITALS: BP 174/120
[2017-04-24 02:28] LABS: CHLORIDE 100 mEq/L (98-107)
== END 2017-04-24 02:34 | disposition home or self-care (01) ==
LOC: ER 20:35
DX: I12.0 Hypertensive chronic kidney disease with stage 5 chronic kidney disease or end stage renal disease (principal); R73.9 Hyperglycemia, unspecified; N18.6 End stage renal disease; D63.1 Anemia in chronic kidney disease; Z91.14 Patient's other noncompliance with medication regimen; Z99.2 Dependence on renal dialysis; Z88.6 Allergy status to analgesic agent
CPT/HCPCS: 36415; 71045; 80053; 83880; 84484; 85025; 85610; 93005; 99285; Z7610

== ENCOUNTER 2017-05-24 21:33 | Emergency (ER) | payer MEDICAID ==
[~2017-05-24] VITALS: Ht 170.2 cm; Wt 62.0 kg
[2017-05-25] MEDS ORDERED: MORPHINE SULFATE 4 MG/ML CPJ (NOT FOR IM USE) IV STA (00:08)
[2017-05-25] MEDS ORDERED: ONDANSETRON HCL 4MG/2ML VIAL IV STA (00:08)
[2017-05-25] MEDS ORDERED: CLONIDINE 0.3MG TABLET PO ONE (00:15)
[2017-05-25] MEDS ORDERED: HYDRALAZINE 20MG/ML VIAL IV ONE (00:15)
[2017-05-25 00:42] LABS: HEMATOCRIT. 33.3 % (42.0-52.0); HEMOGLOBIN. 10.9 g/dL (14.0-18.0); MEAN CORPUSCULAR HEMOGLOBIN 31.9 pg (28.0-32.0); MEAN CORPUSCULAR VOLUME 97.3 fL (80.0-94.0); PLATELET 271 x1000/uL (130-400); RED BLOOD CELL COUNT 3.43 mill/uL (4.7-6.1); RED CELL DISTRIBUTION WIDTH 17.9 % (11.6-14.6)
[2017-05-25 00:54] LABS: CHLORIDE 100 mEq/L (98-107)
[2017-05-25 01:08] LABS: PLATELET ESTIMATE NORMAL
[2017-05-25 12:41] VITALS: BP 145/96
== END 2017-05-25 13:41 | disposition left against medical advice (07) ==
LOC: ER 22:29 → EDBEDREQ 05-25 05:36 → EDBEDREQTM 05-25 05:36 → ER 05-25 13:41 → CANBEDREQ 05-25 13:48
DX: R06.02 Shortness of breath (principal); R42 Dizziness and giddiness; R53.1 Weakness; I12.0 Hypertensive chronic kidney disease with stage 5 chronic kidney disease or end stage renal disease; N18.6 End stage renal disease; F17.200 Nicotine dependence, unspecified, uncomplicated; Z99.2 Dependence on renal dialysis; Z88.5 Allergy status to narcotic agent; Z88.6 Allergy status to analgesic agent; Z88.8 Allergy status to other drugs, medicaments and biological substances
CPT/HCPCS: 36415; 71045; 80053; 84484; 85025; 93005; 96374; 96375; 99285; J0360; J2270; J2405; Z7610

== ENCOUNTER 2017-08-01 00:35 | Inpatient (IN) | payer MEDICAID ==
[~2017-08-01] VITALS: Ht 170.2 cm; Wt 61.2 kg
[~2017-08-01 00:35] MED LIST changes: -AZIT500T5 PO
[2017-08-01] MEDS ORDERED: NITROGLYCERIN OINT 1GM/INCH UDPKT TD ONE (04:01)
[2017-08-01] MEDS ORDERED: DOCUSATE SODIUM 100MG CAPSULE PO PRN (06:00)
[2017-08-01] MEDS ORDERED: IPRATROPIUM/ALBUTEROL 0.5-3(2.5)MG/3ML NEB INH PRN (06:00)
[2017-08-01] MEDS ORDERED: CLONIDINE 0.1MG TABLET PO PRN (06:00)
[2017-08-01] MEDS ORDERED: ENOXAPARIN 40MG/0.4ML SYR SUBCUT SCH (06:00)
[2017-08-01] MEDS ORDERED: GUAIFENESIN 200MG/10ML SUGAR FREE UDC PO PRN (06:00)
[2017-08-01] MEDS ORDERED: LORAZEPAM 2MG/ML CPJ IV PRN (06:00)
[2017-08-01] MEDS ORDERED: MAGNESIUM/ALUMINUM HYDROXIDE/SIMETHICONE 30ML UDC PO PRN (06:00)
[2017-08-01] MEDS ORDERED: NA PHOS,M-B/NA PHOS,DI-BA ENEMA 118ML PR PRN (06:00)
[2017-08-01] MEDS ORDERED: DIPHENHYDRAMINE 50MG/ML VIAL IV PRN (06:00)
[2017-08-01] MEDS ORDERED: ONDANSETRON HCL 4MG/2ML VIAL IV PRN (06:00)
[2017-08-01 06:16] LABS: CHLORIDE 101 mEq/L (98-107)
[2017-08-01 07:01] LABS: BASOPHILS % 1.4 % (0.0-2.0); HEMATOCRIT. 36.9 % (42.0-52.0); HEMOGLOBIN. 12.1 g/dL (14.0-18.0); MEAN CORPUSCULAR HEMOGLOBIN 32.4 pg (28.0-32.0); MEAN CORPUSCULAR VOLUME 98.9 fL (80.0-94.0); MEAN PLATELET VOLUME 7.7 fl (7.4-10.4); MONOCYTES % 12.6 % (2.0-8.0); PLATELET 223 x1000/uL (130-400); RED BLOOD CELL COUNT 3.73 mill/uL (4.7-6.1); RED CELL DISTRIBUTION WIDTH 15.9 % (11.6-14.6)
[2017-08-01 09:00] VITALS: BP 160/107
[2017-08-01] MEDS: ENOXAPARIN 30MG/0.3ML SYR SUBCUT SCH ×2 (09:00→10:18)
[2017-08-01 09:15] VITALS: BP 160/107
[2017-08-01] MEDS ORDERED: LOSARTAN POTASSIUM 50 MG TABLET PO SCH (09:45)
[2017-08-01] MEDS ORDERED: TRAMADOL 50MG TABLET PO PRN (11:30)
[2017-08-01 12:00] VITALS: BP 138/90
[2017-08-01] MEDS: CLONIDINE 0.1MG TABLET PO SCH ×2 (14:00→21:16)
[2017-08-01 16:00] VITALS: BP 110/55
[2017-08-01 20:00] VITALS: BP 134/94
[2017-08-02] MEDS ORDERED: AMLODIPINE 10MG TABLET PO SCH (09:00)
== END 2017-08-02 01:40 | disposition left against medical advice (07) | DRG 470 ==
LOC: ER 00:35 → 7WST 05:45 → ENRESERV 08:09
PROVIDERS: ADMIT Internal Medicine; ATTEND Internal Medicine
PROC: 5A1D70Z Performance of Urinary Filtration, Intermittent, Less than 6 Hours Per Day (ICD-10-PCS; principal; 2017-08-01)
DX: I13.11 Hypertensive heart and chronic kidney disease without heart failure, with stage 5 chronic kidney disease, or end stage renal disease (principal); I42.9 Cardiomyopathy, unspecified; N18.6 End stage renal disease; E11.22 Type 2 diabetes mellitus with diabetic chronic kidney disease; F20.9 Schizophrenia, unspecified; I27.20 Pulmonary hypertension, unspecified; E78.5 Hyperlipidemia, unspecified; F17.210 Nicotine dependence, cigarettes, uncomplicated; D64.9 Anemia, unspecified; F16.10 Hallucinogen abuse, uncomplicated; J44.9 Chronic obstructive pulmonary disease, unspecified; Z59.0 Homelessness; Z79.899 Other long term (current) drug therapy; Z88.6 Allergy status to analgesic agent; Z91.19 Patient's noncompliance with other medical treatment and regimen; Z99.2 Dependence on renal dialysis; Z88.8 Allergy status to other drugs, medicaments and biological substances
CPT/HCPCS: 36415; 71045; 80048; 85025; 99285; J1650; J2405

== ENCOUNTER 2017-08-14 23:03 | Emergency (ER) | payer MEDICAID ==
[~2017-08-14] VITALS: Ht 180.3 cm; Wt 69.0 kg
[2017-08-15] MEDS ORDERED: KETOROLAC 30MG/ML VIAL IV ONE (00:15)
[2017-08-15 00:32] LABS: EOSINOPHILS % 14.2 % (0.0-5.0); HEMATOCRIT. 40.8 % (42.0-52.0); HEMOGLOBIN. 13.3 g/dL (14.0-18.0); LYMPHOCYTES % 10.5 % (20.0-50.0); MEAN CORPUSCULAR HEMOGLOBIN 32.5 pg (28.0-32.0); MEAN CORPUSCULAR VOLUME 99.3 fL (80.0-94.0); MEAN PLATELET VOLUME 9.6 fl (7.4-10.4); MONOCYTES % 4.3 % (2.0-8.0); PLATELET 238 x1000/uL (130-400); RED BLOOD CELL COUNT 4.11 mill/uL (4.7-6.1); RED CELL DISTRIBUTION WIDTH 15.9 % (11.6-14.6)
[2017-08-15] MEDS ORDERED: CLONIDINE 0.3MG TABLET PO ONE (01:45)
[2017-08-15] MEDS ORDERED: FUROSEMIDE 100MG/10ML VIAL IVP ONE (01:45)
[2017-08-15 03:59] VITALS: BP 150/95
== END 2017-08-15 04:13 | disposition home or self-care (01) ==
LOC: ER 23:03
DX: R06.02 Shortness of breath (principal); I12.0 Hypertensive chronic kidney disease with stage 5 chronic kidney disease or end stage renal disease; N18.6 End stage renal disease; G89.29 Other chronic pain; Z99.2 Dependence on renal dialysis; Z88.6 Allergy status to analgesic agent; Z79.899 Other long term (current) drug therapy
CPT/HCPCS: 36415; 85025; 93005; 96374; 96375; 99285; J1885; J1940; Z7610

== ENCOUNTER 2017-12-12 22:50 | Inpatient (IN) | payer MEDICAID ==
[~2017-12-12] VITALS: Ht 170.2 cm; Wt 59.7 kg
[~2017-12-12 22:50] MED LIST changes: +REN800 MT
[2017-12-12] MEDS ORDERED: NITROGLYCERIN OINT 1GM/INCH UDPKT TD ONE (23:15)
[2017-12-12] MEDS ORDERED: CLOPIDOGREL 75MG TABLET PO ONE (23:15)
[2017-12-12 23:35] LABS: BG BASE EXCESS -8.2 mmol/L (-2.0-2.0); BG CARBOXYHEMOGLOBIN 1.5 % (0.5-1.5); BG DEOXYHEMOGLOBIN 10.3 % (0.0-5.0); BG FRACTION INSPIRED OXYGEN 21; BG HCO3 ACT 16.2 mmol/L (22.0-26.0); BG METHEMOGLOBIN 0.2 % (0.0-1.5); BG OXYGEN SATURATION 89.5 % (92.0-98.5); BG PCO2 29.2 mmHg (35.0-45.0); BG PH 7.362 (7.350-7.450); BG PO2 62.2 mmHg (75.0-100.0); BG SAMPLE SITE RIGHT RADIAL; BG TOTAL HEMOGLOBIN 8.7 g/dL (12.0-18.0); BG VENT MODE ROOM AIR
[2017-12-13] VITALS (10 sets, daily range): BP systolic 93–168; BP diastolic 44–98
[2017-12-13 01:52] LABS: CHLORIDE 102 mEq/L (98-107)
[2017-12-13 01:55] LABS: HEMATOCRIT. 24.1 % (42.0-52.0); HEMOGLOBIN. 7.7 g/dL (14.0-18.0); MEAN CORPUSCULAR HEMOGLOBIN 30.2 pg (28.0-32.0); MEAN CORPUSCULAR VOLUME 94.7 fL (80.0-94.0); MEAN PLATELET VOLUME 7.9 fl (7.4-10.4); PLATELET 289 x1000/uL (130-400); RED BLOOD CELL COUNT 2.54 mill/uL (4.7-6.1); RED CELL DISTRIBUTION WIDTH 18.1 % (11.6-14.6)
[2017-12-13] MEDS ORDERED: ALBUTEROL (0.083%) 2.5MG/3ML NEB HHN STA (02:07)
[2017-12-13] MEDS ORDERED: SODIUM BICARBONATE 8.4% 1 MEQ/ML 50ML SYR IV ONE (02:15)
[2017-12-13] MEDS ORDERED: SODIUM POLYSTYRENE SULFONATE 15 G/60 ML BOT PO ONE (02:15)
[2017-12-13 02:19] LABS: INR 1.1; PROTHROMBIN TIME 10.7 sec (9.1-11.1)
[2017-12-13] MEDS ORDERED: CALCIUM GLUCONATE 1,000 MG in DEXTROSE 5% WATER 50 ML IV ONE (02:30)
[2017-12-13] MEDS ORDERED: ONDANSETRON HCL 4MG/2ML INJ IV STA (03:02)
[2017-12-13] MEDS ORDERED: MORPHINE SULFATE 4 MG/ML CPJ (NOT FOR IM USE) IV STA (03:02)
[2017-12-13 04:47] LABS: PLATELET ESTIMATE NORMAL
[2017-12-13] MEDS ORDERED: CLONIDINE 0.2MG TABLET PO PRN (05:45)
[2017-12-13] MEDS: MORPHINE SULFATE 4 MG/ML CPJ (NOT FOR IM USE) IV PRN ×3 (06:35→22:52)
[2017-12-13] MEDS: DIPHENHYDRAMINE 50MG/ML VIAL IV PRN ×2 (07:01→14:33)
[2017-12-13] MEDS ORDERED: HEPARIN SODIUM 1,000 UNIT/1ML VIAL IV NR (08:30)
[2017-12-13] MEDS ORDERED: ONDANSETRON HCL 4MG/2ML INJ IV PRN (08:30)
[2017-12-13] MEDS: GUAIFENESIN 200MG/10ML SUGAR FREE UDC PO PRN ×3 (08:43→22:45)
[2017-12-13] MEDS: SEVELAMER CARBONATE 800 MG TABLET PO SCH ×2 (08:44→17:42)
[2017-12-13] MEDS ORDERED: AMLODIPINE 10MG TABLET PO SCH (09:00)
[2017-12-13] MEDS ORDERED: LOSARTAN POTASSIUM 50 MG TABLET PO SCH (09:00)
[2017-12-13] MEDS ORDERED: FOLIC ACID/VITAMIN B COMP W-C TABLET PO SCH (09:00)
[2017-12-13] MEDS: PIPERACILLIN/TAZ 2.25G PREMIX 50 ML IV SCH ×2 (11:13→17:42)
[2017-12-13] MEDS ORDERED: IPRATROPIUM/ALBUTEROL 0.5-3(2.5)MG/3ML NEB HHN PRN (14:45)
[2017-12-13] MEDS ORDERED: VANCOMYCIN 1250MG in DEXTROSE 5% WATER 250ML IV NR (15:00)
[2017-12-13] MEDS ORDERED: VANCOMYCIN 1 G PREMIX 200 ML IV SCH (15:30)
[2017-12-13] MEDS: IPRATROPIUM/ALBUTEROL 0.5-3(2.5)MG/3ML NEB HHN SCH ×2 (16:13→20:01)
[2017-12-13] MEDS: BUDESONIDE 0.5MG/2ML NEB HHN SCH ×2 (16:13→20:01)
[2017-12-13 16:29] LABS: HEMATOCRIT. 23.5 % (42.0-52.0); HEMOGLOBIN. 7.7 g/dL (14.0-18.0); MEAN CORPUSCULAR HEMOGLOBIN 30.3 pg (28.0-32.0); MEAN CORPUSCULAR VOLUME 92.8 fL (80.0-94.0); MEAN PLATELET VOLUME 7.5 fl (7.4-10.4); PLATELET 272 x1000/uL (130-400); RED BLOOD CELL COUNT 2.53 mill/uL (4.7-6.1); RED CELL DISTRIBUTION WIDTH 17.9 % (11.6-14.6)
[2017-12-13 17:20] LABS: PLATELET ESTIMATE NORMAL
[2017-12-13] MEDS ORDERED: EPOETIN ALFA 10000UNITS/ML VIAL SUBCUT SCH (21:00)
[2017-12-14 06:56] LABS: *AMPHETAMINES SCREEN URINE NEGATIVE (NEGATIVE); *BARBITURATES SCREEN URINE NEGATIVE (NEGATIVE); *BENZODIAZEPINES SCREEN URINE NEGATIVE (NEGATIVE)
[2017-12-14 06:57] LABS: *COCAINE SCREEN URINE NEGATIVE (NEGATIVE); CANNABINOID URINE SCREEN NEGATIVE (NEGATIVE); METHADONE URINE SCREEN NEGATIVE (NEGATIVE); OPIATES URINE SCREEN PRESUMTIVE POSITIVE (NEGATIVE); PHENCYCLIDINE URINE SCREEN PRESUMTIVE POSITIVE (NEGATIVE)
== END 2017-12-13 23:45 | disposition left against medical advice (07) | DRG 720 ==
LOC: ER 23:41 → 5EST 12-13 02:23 → EDBEDREQDT 12-13 02:32 → EDBEDREQ 12-13 02:32 → EDBEDREQTM 12-13 02:32 → EDBEDREQSVC 12-13 02:32 → ENRESERV 12-13 02:50 → 5EST 12-13 06:11
PROVIDERS: ADMIT Internal Medicine; ATTEND Internal Medicine
PROC: 5A09357 Assistance with Respiratory Ventilation, Less than 24 Consecutive Hours, Continuous Positive Airway Pressure (ICD-10-PCS; principal; 2017-12-13)
PROC: 5A1D70Z Performance of Urinary Filtration, Intermittent, Less than 6 Hours Per Day (ICD-10-PCS; 2017-12-13)
DX: A41.9 Sepsis, unspecified organism (principal); J96.01 Acute respiratory failure with hypoxia; I13.2 Hypertensive heart and chronic kidney disease with heart failure and with stage 5 chronic kidney disease, or end stage renal disease; E87.2 Acidosis; E43 Unspecified severe protein-calorie malnutrition; N18.6 End stage renal disease; I27.20 Pulmonary hypertension, unspecified; E87.5 Hyperkalemia; F17.210 Nicotine dependence, cigarettes, uncomplicated; J44.9 Chronic obstructive pulmonary disease, unspecified; E87.70 Fluid overload, unspecified; F20.9 Schizophrenia, unspecified; Z53.21 Procedure and treatment not carried out due to patient leaving prior to being seen by health care provider; D63.8 Anemia in other chronic diseases classified elsewhere; I50.21 Acute systolic (congestive) heart failure; I42.9 Cardiomyopathy, unspecified; Z91.15 Patient's noncompliance with renal dialysis; Z91.19 Patient's noncompliance with other medical treatment and regimen; Z99.2 Dependence on renal dialysis; Z88.6 Allergy status to analgesic agent; Z88.8 Allergy status to other drugs, medicaments and biological substances; Z82.49 Family history of ischemic heart disease and other diseases of the circulatory system
CPT/HCPCS: 36415; 36430; 36600; 71045; 80048; 80305; 82375; 82805; 83880; 84145; 84484; 86850; 86900; 93005; 94640; 94660; 96374; 99291; J0610; J0885; J1200; J1644; J2270; J2543; J3370; J3490; J7030; J7050; J7060; J7611; J7620; J7626

== ENCOUNTER 2017-12-14 14:08 | Inpatient (IN) | payer MEDICAID ==
[~2017-12-14] VITALS: Ht 172.7 cm; Wt 64.0 kg
[2017-12-14] MEDS ORDERED: SODIUM CHLORIDE 0.9% 1,000 ML IV ONE (14:42)
[2017-12-14] MEDS ORDERED: ONDANSETRON HCL 4MG/2ML INJ IV STA (14:42)
[2017-12-14] MEDS ORDERED: SODIUM CHLORIDE 0.9% 500 ML IV ONE (14:42)
[2017-12-14 15:01] LABS: HEMATOCRIT. 24.9 % (42.0-52.0); HEMOGLOBIN. 8.2 g/dL (14.0-18.0); MEAN CORPUSCULAR HEMOGLOBIN 30.7 pg (28.0-32.0); MEAN CORPUSCULAR VOLUME 93.1 fL (80.0-94.0); PLATELET 282 x1000/uL (130-400); RED BLOOD CELL COUNT 2.68 mill/uL (4.7-6.1); RED CELL DISTRIBUTION WIDTH 17.7 % (11.6-14.6)
[2017-12-14 15:09] LABS: INR 1.1; PROTHROMBIN TIME 10.8 sec (9.1-11.1)
[2017-12-14 15:13] LABS: CHLORIDE 95 mEq/L (98-107); ETHANOL BLOOD < 10 mg/dL
[2017-12-14 15:51] LABS: PLATELET ESTIMATE NORMAL
[2017-12-14] MEDS ORDERED: LORAZEPAM 2MG/ML CPJ IM ONE (16:15)
[2017-12-14] MEDS ORDERED: VANCOMYCIN 1 G PREMIX 200 ML IV ONE (17:00)
[2017-12-14] MEDS ORDERED: CLONIDINE 0.1MG TABLET PO PRN (17:15)
[2017-12-14] MEDS ORDERED: ONDANSETRON HCL 4MG/2ML INJ IV PRN (17:15)
[2017-12-14] MEDS ORDERED: LOSARTAN POTASSIUM 50 MG TABLET PO SCH (18:00)
[2017-12-14 20:30] VITALS: BP 153/66
[2017-12-14 20:50] VITALS: BP 153/66
[2017-12-14] MEDS: AMLODIPINE 5MG TABLET PO SCH (21:38)
[2017-12-15] VITALS: BP 129/57
[2017-12-15 03:57] VITALS: BP 117/75
[2017-12-15] MEDS ORDERED: IPRATROPIUM/ALBUTEROL 0.5-3(2.5)MG/3ML NEB HHN PRN (06:15)
[2017-12-15] MEDS ORDERED: SEVELAMER CARBONATE 800 MG TABLET PO SCH (07:50)
[2017-12-15 08:46] VITALS: BP 141/58
[2017-12-15] MEDS: AMLODIPINE 5MG TABLET PO SCH (08:46)
== END 2017-12-15 08:56 | disposition left against medical advice (07) | DRG 812 ==
LOC: ER 14:08 → 6WST 16:55 → ENRESERV 18:01
PROVIDERS: ADMIT Internal Medicine; ATTEND Internal Medicine
DX: T40.991A Poisoning by other psychodysleptics [hallucinogens], accidental (unintentional), initial encounter (principal); J96.01 Acute respiratory failure with hypoxia; G93.41 Metabolic encephalopathy; I13.2 Hypertensive heart and chronic kidney disease with heart failure and with stage 5 chronic kidney disease, or end stage renal disease; E43 Unspecified severe protein-calorie malnutrition; I27.20 Pulmonary hypertension, unspecified; N18.6 End stage renal disease; E87.2 Acidosis; E87.8 Other disorders of electrolyte and fluid balance, not elsewhere classified; D63.8 Anemia in other chronic diseases classified elsewhere; D72.829 Elevated white blood cell count, unspecified; F17.210 Nicotine dependence, cigarettes, uncomplicated; F20.9 Schizophrenia, unspecified; I50.21 Acute systolic (congestive) heart failure; Z53.21 Procedure and treatment not carried out due to patient leaving prior to being seen by health care provider; I38 Endocarditis, valve unspecified; I42.9 Cardiomyopathy, unspecified; J44.9 Chronic obstructive pulmonary disease, unspecified; Z59.0 Homelessness; Z91.19 Patient's noncompliance with other medical treatment and regimen; Z99.2 Dependence on renal dialysis; Y92.89 Other specified places as the place of occurrence of the external cause; Z88.5 Allergy status to narcotic agent; Z88.6 Allergy status to analgesic agent; Z88.8 Allergy status to other drugs, medicaments and biological substances; Z79.899 Other long term (current) drug therapy; Z82.49 Family history of ischemic heart disease and other diseases of the circulatory system; Z68.21 Body mass index [BMI] 21.0-21.9, adult
CPT/HCPCS: 36415; 71045; 82962; 83605; 83880; 84443; 84484; 93005; 96361; 96374; 99285; G0482; J2060; J2405; J3370; J7030; J7040